=== PATIENT | female | born 1960 | race Caucasian/White ===

== ENCOUNTER 2020-05-23 09:53 | Outpatient (REF) | payer OTHER, SELFPAY ==
[2020-05-23 13:30] LABS: MANUAL DIFF FLAG NO
[2020-05-23 13:38] LABS: Basophils Absolute Auto 0.1 X10*3/uL (0.0-0.2); Eosinophils Absolute Auto 0.3 X10*3/uL (0.0-0.4); Eosinophils Percent Auto 3.3 % (0-4); Hematocrit 47.2 % (37-47); Hemoglobin 15.7 g/dl (12.0-16.0); Imm Gran Abs Auto 0.06 X10*3/uL (0.00-0.03); Imm Gran Pct Auto 0.6 % (0.0-0.4); Lymphocytes Absolute Auto 2.2 X10*3/uL (1.2-4.9); Lymphocytes Percent Auto 22.4 % (20-40); Mean Corpuscular HGB Conc 33.3 g/dl (31.0-35.0); Mean Corpuscular Hemoglobin 32.6 pg (27.0-33.0); Mean Corpuscular Volume 97.9 fL (80-98); Monocytes Absolute Auto 0.8 X10*3/uL (0.1-1.2); Monocytes Percent Auto 7.9 % (2-11); Neutrophils Absolute Auto 6.2 X10*3/uL (2.0-8.3); Neutrophils Percent Auto 64.8 % (45-73); Platelet Count 328 X10*3/uL (160-400); Red Blood Count 4.82 X10*6/uL (4.20-5.50); Red Cell Distribution Width 12.8 % (11.0-16.0); White Blood Count 9.6 X10*3/uL (4.8-10.8)
[2020-05-23 14:25] LABS: Alanine Aminotransferase 23 U/L (0-31); Albumin Level 4.6 g/dL (3.5-5.0); Alkaline Phosphatase 81 U/L (39-117); Anion Gap 14 (12-20); Aspartate Amino Transferase 23 U/L (5-31); Bilirubin Total 0.5 mg/dL (0.0-1.0); Blood Urea Nitrogen 6 mg/dL (9-16); Calcium 9.9 mg/dL (8.4-10.2); Carbon Dioxide 31 mmol/L (22-29); Chloride 98 mmol/L (96-108); Cholesterol 265 mg/dL; Estimated Glomerular Filt Rate > 60; Glucose Fasting 96 mg/dL (60-99); HDL Cholesterol 66 mg/dL; LDL Cholesterol Calculated 181 mg/dl; Potassium 5.2 mmol/l (3.3-5.1); Sodium 138 mmol/L (135-145); Total Protein 7.3 g/dL (6.5-8.0); Triglycerides 92 mg/dL
[2020-05-23 14:46] LABS: Vitamin D 25-OH Total 23.7 ng/mL (>30)
[2020-05-23 15:04] LABS: Folate > 20.0 ng/mL (> or = 4.0); Vitamin B12 656 pg/mL (200-900)
[2020-05-23 15:36] LABS: T4 Thyroxine 7.9 ug/dL (4.5-12.0)
== END 2020-05-23 09:54 | disposition home or self-care (01) ==
LOC: HO.10HDL 09:53
PROVIDERS: PCP Internal Medicine; Visit Provider Internal Medicine
DX: J44.9 Chronic obstructive pulmonary disease, unspecified (principal); F41.9 Anxiety disorder, unspecified; I10 Essential (primary) hypertension; E78.00 Pure hypercholesterolemia, unspecified
CPT/HCPCS: 36415; 80053; 80061; 82306; 82607; 82746; 84436; 84443; 85025

== ENCOUNTER 2020-10-03 11:56 | Outpatient (REF) | payer OTHER, SELFPAY ==
--- NOTE | ~2020-10-03 | MM_ITS ---
EXAMINATION: MM SCREENING DIGITAL BREAST TOMOSYNTHESIS, BILATERAL CLINICAL INFORMATION: Screening. Asymptomatic. The lifetime risk of breast cancer based on the Tyrer-Cuzick Model is 4%. COMPARISON: Mammography: 08/04/2018, 05/13/2017, 04/30/2016 TECHNIQUE: Digital breast tomosynthesis is performed in both the craniocaudal and mediolateral oblique views along with computer-aided detection (CAD). Synthesized 2D images are generated from the tomosynthesis. FINDINGS: There are scattered areas of fibroglandular density (ACR BI-RADS breast composition Category b). There are no significant masses, abnormal calcifications, or other abnormalities. Parenchymal pattern is similar to prior studies. No developing density. MM/MM tomosynthesis screening BI IMPRESSION: No mammographic evidence of malignancy. ASSESSMENT: BI-RADS 1: Negative RECOMMENDATION: Routine annual mammography screening. This patient's information was entered into a reminder system with a target due date for their next mammogram.
== END 2020-10-03 11:57 | disposition home or self-care (01) ==
LOC: HO.MAMMO 11:56
PROVIDERS: PCP Internal Medicine; Visit Provider Internal Medicine
DX: Z12.31 Encounter for screening mammogram for malignant neoplasm of breast (principal)
CPT/HCPCS: 77063; 77067

== ENCOUNTER 2020-12-03 10:54 | Outpatient (REF) | payer OTHER, SELFPAY ==
--- NOTE | ~2020-12-03 | XR_ITS ---
EXAMINATION: XR SINUSES CLINICAL INFORMATION: R09.81 - Nasal congestion COMPARISON: None TECHNIQUE: The sinuses are imaged in 4 views. FINDINGS: There is an unerupted posterior upper left molar residing in the left maxillary sinus. There is some trace mucosal thickening lateral aspect bilateral maxillary sinuses. No significant mucosal thickening and no air-fluid level or polypoid mass. There is no sinus thickening or sclerosis or destructive process. XR/XR sinus <3V IMPRESSION: 1. Unerupted tooth residing in the left maxillary sinus. 2. Mild mucosal thickening lateral aspect bilateral maxillary sinuses. No air-fluid levels.
== END 2020-12-03 10:55 | disposition home or self-care (01) ==
LOC: HO.XRAY 10:54
PROVIDERS: PCP Internal Medicine; Visit Provider Internal Medicine
DX: R09.81 Nasal congestion (principal)
CPT/HCPCS: 70210

== ENCOUNTER 2021-01-11 09:30 | Inpatient (IN) | payer OTHER, SELFPAY ==
[2021-01-11] VITALS (18 sets, daily range): BP systolic 139–186; BP diastolic 56–132; PULSE 90–103; RESP 16–26; TEMP 36.7–37.3; O2SAT 92–100; BMI 23.6
--- NOTE | 2021-01-11 | ECG_ITS ---
Test Reason : PRE SURG Blood Pressure : / mmHG Vent. Rate : 094 BPM Atrial Rate : 094 BPM P-R Int : 134 ms QRS Dur : 082 ms QT Int : 366 ms P-R-T Axes : 072 036 054 degrees QTc Int : 457 ms Sinus rhythm with occasional Premature ventricular complexes Possible Left atrial enlargement Borderline ECG When compared with ECG of 13-SEP-2019 10:14, No significant change was found Referred By: Becky Masterson Electronically Signed By:ROCK RICHMOND
--- NOTE | ~2021-01-11 | US_ITS ---
EXAMINATION: ULTRASOUND PELVIS TRANSABDOMINAL/TRANSVAGINAL COMPLETE CLINICAL INFORMATION: Right lower quadrant/right pelvic pain. COMPARISON: CT scan of the abdomen and pelvis dated 07/10/2019. TECHNIQUE: Multiple 2-D grayscale transabdominal/transvaginal pelvic ultrasound images with Doppler were obtained. FINDINGS: Uterus: Anteverted/anteflexed measuring 6.8 x 3.2 x 4.9 cm. No significant myometrial abnormality. Endometrial stripe measures up to 0.2 cm at the level the fundus without focal abnormality. An adjacent submucosal coarse calcification is seen along the posterior margin of the endometrium measuring 0.4 cm. Color Doppler showed no abnormal vascular flow. No free fluid in the cul-de-sac. Right ovary: Not visualized. No overt adnexal abnormality. Left ovary: 1.6 x 1.5 x 1.0 cm with a volume of 1.1 mL . Doppler showed no abnormal vascular flow. No left adnexal abnormality. US/US pelvic and transvaginal IMPRESSION: Benign findings without significant acute abnormality. The right ovary was not confidently identified, but no overt right adnexal abnormality was seen.
--- NOTE | ~2021-01-11 | CT_ITS ---
EXAMINATION: CT ABDOMEN AND PELVIS WITH CONTRAST CLINICAL INFORMATION: Right-sided abdomen pain. Leukocytosis COMPARISON: Portions of a previous CT 07/10/19 TECHNIQUE: Multidetector volumetric images were obtained from the superior aspect of the liver through the pubic symphysis following administration 85 mL of Omnipaque 350 intravenous contrast. Sagittal and coronal reformatted images were obtained on the technologist's workstation. Oral contrast: No This CT examination was performed using dose optimization techniques as appropriate, variously including the following: *Automated exposure control *Adjustment of mA and/or kV according to patient size (this includes techniques or standardized protocols for targeted exams where dose is matched to indication/reason for exam; i.e. extremities or head) *Use of iterative reconstruction technique DLP: 368 mGy-cm FINDINGS: Digital contact center engineer: Gas within large and small bowel throughout the abdomen and pelvis. No evidence of a large mass or collection. Arthritic changes around the hips. Arterial calcifications. Degenerative change in the spine. LUNG BASES: No suspicious abnormality in the visualized lower chest. LIVER, GALLBLADDER, AND BILIARY TREE: No suspicious focal liver lesion. I suspect some fatty change. There is a probable zone of fatty change adjacent to the interlobar fissure. There is no opaque gallstone. No biliary dilation PANCREAS: Within normal limits SPLEEN: Normal ADRENAL GLANDS: Minimal unchanged nodular thickening does not require any further evaluation KIDNEYS AND URETERS: No dilation of the urinary collecting system on either side. The nephrograms are symmetric. There are sharply circumscribed round varying sized fluid attenuating masses consistent with simple cysts. These do not require any further evaluation. Mild nonspecific perinephric stranding. BLADDER: No suspicious abnormality. GASTROINTESTINAL TRACT: There is stranding in the right lower quadrant. There is marked wall thickening of the appendix which is an ascending retrocecal position. There is fluid within the lumen. There is a small amount of fluid in the right lower quadrant and pelvic recesses. This represents an interval change. There is some associated thickening in the region of the cecum and terminal ileum. There is no evidence of pneumoperitoneum or high-grade small bowel obstruction. There are a few regional nonspecific mesenteric lymph nodes. ABDOMINAL WALL: No significant hernia is appreciated. LYMPH NODES: There are no measurably enlarged abdominal or pelvic lymph nodes. VASCULAR: There is extensive atherosclerosis with narrowing at the origin of the visceral branches of the aorta and in the arteries to both lower extremities. The portal vein enhances. PELVIC VISCERA: No suspicious abnormality the uterus or adnexa OSSEOUS STRUCTURES: There is degenerative change in the spine. CT/CT abdomen pelvis w con IMPRESSION: There is abnormal thickening of the dilated appendix with associated periappendiceal stranding and fluid. The pattern is most consistent with acute appendicitis. Perforation could be present. No drainable abscess or bowel obstruction. No pneumoperitoneum.
--- NOTE | 2021-01-11 12:36 | ED.GENADULT ---
HPI - General Adult General Chief complaint: Abdominal Pain <BARRINGTON Carey - Last Filed: 01/11/21 18:25> Stated complaint: pain on right side <BARRINGTON Carey - Last Filed: 01/11/21 18:25> Time Seen by Provider: 01/11/21 11:49 <BARRINGTON Carey - Last Filed: 01/11/21 18:25> Source: patient <Ric Oneil MD - Last Filed: 01/11/21 16:05> Mode of arrival: ambulatory <Ric Oneil MD - Last Filed: 01/11/21 16:05> Limitations: no limitations <Ric Oneil MD - Last Filed: 01/11/21 16:05> History of Present Illness HPI narrative: This is a very pleasant 60 years old of female presented to the ED with a chief complaint of right lower quadrant abdominal pain. She denies any systemic symptoms, denies any fever any vomiting or any diarrhea. She states that she feels well otherwise about the right lower quadrant abdominal pain. <Ric Oneil MD - Last Filed: 01/11/21 16:05> Onset (ago): day(s) (2) <Ric Oneil MD - Last Filed: 01/11/21 16:05> Location: abdomen and right (Lower quadrant) <Ric Oneil MD - Last Filed: 01/11/21 16:05> Radiation: non-radiation <Ric Oneil MD - Last Filed: 01/11/21 16:05> Severity: moderate <Ric Oneil MD - Last Filed: 01/11/21 16:05> Quality: burning <Ric Oneil MD - Last Filed: 01/11/21 16:05> Pain Consistency: constant <Ric Oneil MD - Last Filed: 01/11/21 16:05> Relieving factors: none <Ric Oneil MD - Last Filed: 01/11/21 16:05> Exacerbating factors: none <Ric Oneil MD - Last Filed: 01/11/21 16:05> Related Data Home medications: Previous Rx's Medication Instructions Recorded tiotropium bromide 18 mcg capsule 1 cap INHALATION DAILY #90 cap 10/30/20 with inhalation device clobetasol 0.05 % topical cream 1 appl TOPICAL BID 14 Days #60 g 11/04/20 lisinopril 20 mg tablet 20 mg PO DAILY #30 tab 11/11/20 albuterol sulfate 90 mcg/actuation 2 puff INHALATION Q4-6H PRN #8.5 g 11/18/20 aerosol inhaler lorazepam 0.5 mg tablet 0.5 mg PO DAILY #15 tab 12/09/20 fluticasone propionate 50 2 spray INTRANASAL DAILY #3 ea 12/29/20 mcg/actuation nasal spray,suspension ProAir HFA 90 mcg/actuation 2 puff PO Q4-6H PRN #8.5 g NS 12/30/20 aerosol inhaler azithromycin 250 mg tablet See Rx Instructions PO .COMPLEX #6 01/06/21 tab ezetimibe 10 mg tablet 10 mg PO DAILY #30 tab 01/06/21 fluticasone furoate 200 1 inh INHALATION DAILY #28 ea 01/06/21 mcg-vilanterol 25 mcg/dose inhalation powder <BARRINGTON Carey - Last Filed: 01/11/21 18:25> Allergies/adverse reactions: Allergies Allergy/AdvReac Type Severity Reaction Status Date / Time amoxicillin [Augmentin] Allergy Unknown Unknown Verified 01/11/21 12:34 atorvastatin Allergy Unknown Unknown Verified 01/11/21 12:34 cephalexin [From KEFLEX] Allergy Unknown STOMACH Verified 01/11/21 12:34 UPSET clavulanic acid [Augmentin] Allergy Unknown Under Verified 01/11/21 12:34 latex [LATEX] Allergy Unknown RASH Verified 01/11/21 12:34 Sulfa (Sulfonamide Allergy Unknown STOMACH Verified 01/11/21 12:34 Antibiotics) UPSET [SULFA (SULFONAMIDE ANTIBIOTICS)] fluticasone AdvReac Intermediate Anxiety Verified 01/11/21 12:34 [From Wixela Inhub] salmeterol AdvReac Intermediate Anxiety Verified 01/11/21 12:34 [From Wixela Inhub] <BARRINGTON Carey - Last Filed: 01/11/21 18:25> Review of Systems Review of Systems: Yes all other systems are reviewed and are negative <Ric Oneil MD - Last Filed: 01/11/21 16:05> Cardiovascular: Cardiovascular: Reports no additional cardiovascular complaints <Ric Oneil MD - Last Filed: 01/11/21 16:05> Respiratory: Respiratory: Reports no additional respiratory complaints, Denies chest congestion, Denies cough and Denies hemoptysis <Ric Oneil MD - Last Filed: 01/11/21 16:05> Gastrointestinal: Gastrointestinal: Reports abdominal pain, Denies hematochezia, Denies diarrhea and Denies vomiting <Ric Oneil MD - Last Filed: 01/11/21 16:05> Neurologic: Reports system reviewed and no additional complaints, except as documented <Ric Oneil MD - Last Filed: 01/11/21 16:05> PMFSH Past Medical History Medical History: Medical History Anxiety Colonoscopy refused COPD (chronic obstructive pulmonary disease) Hypercholesterolemia Hypertension Lymphedema Recurrent urinary tract infection <BARRINGTON Carey - Last Filed: 01/11/21 18:25> Surgical History: Surgical History (Updated 01/11/21 @ 17:37 by Becky Masterson MD) History of section History of tubal ligation Hx of tonsillectomy <BARRINGTON Carey - Last Filed: 01/11/21 18:25> Social History Social History: Social History Alcohol intake: current Alcohol intake frequency: holidays/special occasions only Smoking Status: Former smoker Advance Directives: Yes Advance Directives Information Provided: Yes Advance Directives on File: No Patient : No <BARRINGTON Carey - Last Filed: 01/11/21 18:25> Physical Exam Vital Signs: Vital Signs: Last Vital Signs Temp 99.1 F 01/11/21 12:34 Pulse 94 01/11/21 15:21 Resp 18 01/11/21 15:21 BP 162/72 H 01/11/21 15:21 Pulse Ox 95 01/11/21 15:21 Body Mass Index 23.6 <BARRINGTON Carey - Last Filed: 01/11/21 18:25> Vital Signs: Last Vital Signs Temp 99.1 F 01/11/21 12:34 Pulse 94 01/11/21 15:21 Resp 18 01/11/21 15:21 BP 162/72 H 01/11/21 15:21 Pulse Ox 95 01/11/21 15:21 Body Mass Index 23.6 <Ric Oneil MD - Last Filed: 01/11/21 16:05> Const: Other: Patient looks well in not acute distress <Ric Oneil MD - Last Filed: 01/11/21 16:05> Orientation/consciousness: oriented to person, oriented to place, oriented to time and patient oriented x3 <Ric Oneil MD - Last Filed: 01/11/21 16:05> HENMT: Head: Yes normal to inspection <Ric Oneil MD - Last Filed: 01/11/21 16:05> Eyes: General: appearance normal, both eyes and all related structures <Ric Oneil MD - Last Filed: 01/11/21 16:05> Neck: Neck: Yes normal visual inspection, Yes full ROM and Yes no lymphadenopathy <Ric Oneil MD - Last Filed: 01/11/21 16:05> Chest: Chest palpation & inspection: normal inspection of the chest <Ric Oneil MD - Last Filed: 01/11/21 16:05> Resp: Effort & Inspection: normal respiratory effort <Ric Oneil MD - Last Filed: 01/11/21 16:05> Auscultation: clear to auscultation bilaterally <Ric Oneil MD - Last Filed: 01/11/21 16:05> Cardio: Jugular venous distension: no JVD <Ric Oneil MD - Last Filed: 01/11/21 16:05> Palpation: normal PMI <Ric Oneil MD - Last Filed: 01/11/21 16:05> Rate: regular rate <Ric Oneil MD - Last Filed: 01/11/21 16:05> Rhythm: regular rhythm <Ric Oneil MD - Last Filed: 01/11/21 16:05> GI: Inspection: Yes normal to inspection <Ric Oneil MD - Last Filed: 01/11/21 16:05> Palpation (GI): Soft to palpation and Tenderness to palpation present (GI) in the RLQ <Ric Oneil MD - Last Filed: 01/11/21 16:05> Skin: General skin exam: no rashes or lesions noted <Ric Oneil MD - Last Filed: 01/11/21 16:05> Neuro: General: oriented to person, oriented to place, oriented to time and patient oriented x3 <Ric Oneil MD - Last Filed: 01/11/21 16:05> Extrem: General: Yes normal to inspection, Yes full ROM, Yes capillary refill normal and Yes normal exam except as noted <Ric Oneil MD - Last Filed: 01/11/21 16:05> Course Course Course Narrative: Rapid Medical Examination: 60 y/o female with history of COPD, anxiety, HTN, HLD, hx recurrent UTI, hx ovarian cyst presenting with right sided pelvic pain and RLQ pain for the last 2 days. Worse with movement and palpation. No N/V/D, urinary symptoms. Will get basic lab workup, UA and pelvic U/S to start. May need CT to r/o appendicitis. Vitally stable and non-toxic. Plan per provider in the Main ED. <BARRINGTON Carey - Last Filed: 01/11/21 18:25> Medical Decision Making Lab Data Result diagrams: : 01/11/21 13:03 01/11/21 13:03 <BARRINGTON Carey - Last Filed: 01/11/21 18:25> Labs: Lab Results 01/11/21 01/11/21 01/11/21 Range/Units 13:03 13:03 13:03 WBC 18.9 H (4.8-10.8) X10*3/uL RBC 4.59 (4.20-5.50) X10*6/uL Hgb 14.6 (12.0-16.0) g/dl Hct 44.2 (37-47) % MCV 96.3 (80-98) fL MCH 31.8 (27.0-33.0) pg MCHC 33.0 (31.0-35.0) g/dl RDW 12.7 (11.0-16.0) % Plt Count 238 D (160-400) X10*3/uL MPV 9.4 (9.4-12.3) fL Immature Gran % (Auto) 0.5 H (0.0-0.4) % Neut % (Auto) 80.0 H (45-73) % Lymph % (Auto) 11.3 L (20-40) % [place] % (Auto) 7.5 (2-11) % Eos % (Auto) 0.4 (0-4) % Baso % (Auto) 0.3 (0-2) % Lymph # (Auto) 2.1 (1.2-4.9) X10*3/uL [place] # (Auto) 1.4 H (0.1-1.2) X10*3/uL Eos # (Auto) 0.1 (0.0-0.4) X10*3/uL Baso # (Auto) 0.1 (0.0-0.2) X10*3/uL Abs Immat Gran (auto) 0.10 H (0.00-0.03) X10*3/uL Absolute Neuts (auto) 15.1 H (2.0-8.3) X10*3/uL Absolute Nucleated RBC 0.000 (0.0-0.012) X10*3/uL Nucleated RBC % (auto) 0.0 (0.0-0.2) /100WBC Sodium 137 (135-145) mmol/L Potassium 4.3 (3.3-5.1) mmol/L Chloride 97 (96-108) mmol/L Carbon Dioxide 31 H (22-29) mmol/L Anion Gap 13 (12-20) BUN 6 L (9-16) mg/dL Creatinine 0.57 (0.5-1.4) mg/dL Estim Creat Clear Calc 78.2 Estimated GFR > 60 Random Glucose 101 (60-115) mg/dL Lactic Acid (0.5-2.0) mmol/L Calcium 10.2 (8.4-10.2) mg/dL Magnesium 1.8 (1.6-2.6) mg/dL Total Bilirubin 0.9 (0.0-1.0) mg/dL Direct Bilirubin 0.3 (0.0-0.5) mg/dL AST 12 D (5-31) U/L ALT 15 (0-31) U/L Alkaline Phosphatase 84 (39-117) U/L Total Protein 7.1 (6.5-8.0) g/dL Albumin 4.3 (3.5-5.0) g/dL Urine Color YELLOW Urine Appearance CLEAR Urine pH 6.5 (5.0-8.0) Ur Specific [place] <= 1.005 (1.005-1.025) Urine Protein NEG (NEG-TRACE) MG/DL Urine Glucose (UA) NEG (NEG) MG/DL Urine Ketones NEG (NEG) MG/DL Urine Blood TRACE (NEG) Urine Nitrite NEG (NEG) Ur Leukocyte Esterase NEG (NEG) Urine RBC 0-2 (0) /HPF Urine WBC 0 (0-4) /HPF Ur Squamous Epith Cells TRACE /LPF Urine Bacteria TRACE /LPF 01/11/21 Range/Units 14:36 WBC (4.8-10.8) X10*3/uL RBC (4.20-5.50) X10*6/uL Hgb (12.0-16.0) g/dl Hct (37-47) % MCV (80-98) fL MCH (27.0-33.0) pg MCHC (31.0-35.0) g/dl RDW (11.0-16.0) % Plt Count (160-400) X10*3/uL MPV (9.4-12.3) fL Immature Gran % (Auto) (0.0-0.4) % Neut % (Auto) (45-73) % Lymph % (Auto) (20-40) % [place] % (Auto) (2-11) % Eos % (Auto) (0-4) % Baso % (Auto) (0-2) % Lymph # (Auto) (1.2-4.9) X10*3/uL [place] # (Auto) (0.1-1.2) X10*3/uL Eos # (Auto) (0.0-0.4) X10*3/uL Baso # (Auto) (0.0-0.2) X10*3/uL Abs Immat Gran (auto) (0.00-0.03) X10*3/uL Absolute Neuts (auto) (2.0-8.3) X10*3/uL Absolute Nucleated RBC (0.0-0.012) X10*3/uL Nucleated RBC % (auto) (0.0-0.2) /100WBC Sodium (135-145) mmol/L Potassium (3.3-5.1) mmol/L Chloride (96-108) mmol/L Carbon Dioxide (22-29) mmol/L Anion Gap (12-20) BUN (9-16) mg/dL Creatinine (0.5-1.4) mg/dL Estim Creat Clear Calc Estimated GFR Random Glucose (60-115) mg/dL Lactic Acid 1.0 (0.5-2.0) mmol/L Calcium (8.4-10.2) mg/dL Magnesium (1.6-2.6) mg/dL Total Bilirubin (0.0-1.0) mg/dL Direct Bilirubin (0.0-0.5) mg/dL AST (5-31) U/L ALT (0-31) U/L Alkaline Phosphatase (39-117) U/L Total Protein (6.5-8.0) g/dL Albumin (3.5-5.0) g/dL Urine Color Urine Appearance Urine pH (5.0-8.0) Ur Specific [place] (1.005-1.025) Urine Protein (NEG-TRACE) MG/DL Urine Glucose (UA) (NEG) MG/DL Urine Ketones (NEG) MG/DL Urine Blood (NEG) Urine Nitrite (NEG) Ur Leukocyte Esterase (NEG) Urine RBC (0) /HPF Urine WBC (0-4) /HPF Ur Squamous Epith Cells /LPF Urine Bacteria /LPF <BARRINGTON Carey - Last Filed: 01/11/21 18:25> Lab Results 01/11/21 01/11/21 01/11/21 Range/Units 13:03 13:03 13:03 WBC 18.9 H (4.8-10.8) X10*3/uL RBC 4.59 (4.20-5.50) X10*6/uL Hgb 14.6 (12.0-16.0) g/dl Hct 44.2 (37-47) % MCV 96.3 (80-98) fL MCH 31.8 (27.0-33.0) pg MCHC 33.0 (31.0-35.0) g/dl RDW 12.7 (11.0-16.0) % Plt Count 238 D (160-400) X10*3/uL MPV 9.4 (9.4-12.3) fL Immature Gran % (Auto) 0.5 H (0.0-0.4) % Neut % (Auto) 80.0 H (45-73) % Lymph % (Auto) 11.3 L (20-40) % [place] % (Auto) 7.5 (2-11) % Eos % (Auto) 0.4 (0-4) % Baso % (Auto) 0.3 (0-2) % Lymph # (Auto) 2.1 (1.2-4.9) X10*3/uL [place] # (Auto) 1.4 H (0.1-1.2) X10*3/uL Eos # (Auto) 0.1 (0.0-0.4) X10*3/uL Baso # (Auto) 0.1 (0.0-0.2) X10*3/uL Abs Immat Gran (auto) 0.10 H (0.00-0.03) X10*3/uL Absolute Neuts (auto) 15.1 H (2.0-8.3) X10*3/uL Absolute Nucleated RBC 0.000 (0.0-0.012) X10*3/uL Nucleated RBC % (auto) 0.0 (0.0-0.2) /100WBC Sodium 137 (135-145) mmol/L Potassium 4.3 (3.3-5.1) mmol/L Chloride 97 (96-108) mmol/L Carbon Dioxide 31 H (22-29) mmol/L Anion Gap 13 (12-20) BUN 6 L (9-16) mg/dL Creatinine 0.57 (0.5-1.4) mg/dL Estim Creat Clear Calc 78.2 Estimated GFR > 60 Random Glucose 101 (60-115) mg/dL Lactic Acid (0.5-2.0) mmol/L Calcium 10.2 (8.4-10.2) mg/dL Magnesium 1.8 (1.6-2.6) mg/dL Total Bilirubin 0.9 (0.0-1.0) mg/dL Direct Bilirubin 0.3 (0.0-0.5) mg/dL AST 12 D (5-31) U/L ALT 15 (0-31) U/L Alkaline Phosphatase 84 (39-117) U/L Total Protein 7.1 (6.5-8.0) g/dL Albumin 4.3 (3.5-5.0) g/dL Urine Color YELLOW Urine Appearance CLEAR Urine pH 6.5 (5.0-8.0) Ur Specific [place] <= 1.005 (1.005-1.025) Urine Protein NEG (NEG-TRACE) MG/DL Urine Glucose (UA) NEG (NEG) MG/DL Urine Ketones NEG (NEG) MG/DL Urine Blood TRACE (NEG) Urine Nitrite NEG (NEG) Ur Leukocyte Esterase NEG (NEG) Urine RBC 0-2 (0) /HPF Urine WBC 0 (0-4) /HPF Ur Squamous Epith Cells TRACE /LPF Urine Bacteria TRACE /LPF 01/11/21 Range/Units 14:36 WBC (4.8-10.8) X10*3/uL RBC (4.20-5.50) X10*6/uL Hgb (12.0-16.0) g/dl Hct (37-47) % MCV (80-98) fL MCH (27.0-33.0) pg MCHC (31.0-35.0) g/dl RDW (11.0-16.0) % Plt Count (160-400) X10*3/uL MPV (9.4-12.3) fL Immature Gran % (Auto) (0.0-0.4) % Neut % (Auto) (45-73) % Lymph % (Auto) (20-40) % [place] % (Auto) (2-11) % Eos % (Auto) (0-4) % Baso % (Auto) (0-2) % Lymph # (Auto) (1.2-4.9) X10*3/uL [place] # (Auto) (0.1-1.2) X10*3/uL Eos # (Auto) (0.0-0.4) X10*3/uL Baso # (Auto) (0.0-0.2) X10*3/uL Abs Immat Gran (auto) (0.00-0.03) X10*3/uL Absolute Neuts (auto) (2.0-8.3) X10*3/uL Absolute Nucleated RBC (0.0-0.012) X10*3/uL Nucleated RBC % (auto) (0.0-0.2) /100WBC Sodium (135-145) mmol/L Potassium (3.3-5.1) mmol/L Chloride (96-108) mmol/L Carbon Dioxide (22-29) mmol/L Anion Gap (12-20) BUN (9-16) mg/dL Creatinine (0.5-1.4) mg/dL Estim Creat Clear Calc Estimated GFR Random Glucose (60-115) mg/dL Lactic Acid 1.0 (0.5-2.0) mmol/L Calcium (8.4-10.2) mg/dL Magnesium (1.6-2.6) mg/dL Total Bilirubin (0.0-1.0) mg/dL Direct Bilirubin (0.0-0.5) mg/dL AST (5-31) U/L ALT (0-31) U/L Alkaline Phosphatase (39-117) U/L Total Protein (6.5-8.0) g/dL Albumin (3.5-5.0) g/dL Urine Color Urine Appearance Urine pH (5.0-8.0) Ur Specific [place] (1.005-1.025) Urine Protein (NEG-TRACE) MG/DL Urine Glucose (UA) (NEG) MG/DL Urine Ketones (NEG) MG/DL Urine Blood (NEG) Urine Nitrite (NEG) Ur Leukocyte Esterase (NEG) Urine RBC (0) /HPF Urine WBC (0-4) /HPF Ur Squamous Epith Cells /LPF Urine Bacteria /LPF <Ric Oneil MD - Last Filed: 01/11/21 16:05> Discharge Plan Discharge Clinical Impression: Appendicitis <BARRINGTON Carey - Last Filed: 01/11/21 18:25> Patient Disposition: Admitted As Inpatient <BARRINGTON Carey - Last Filed: 01/11/21 18:25>
[2021-01-11 13:09] LABS: Basophils Absolute Auto 0.1 X10*3/uL (0.0-0.2); Basophils Percent Auto 0.3 % (0-2); Eosinophils Absolute Auto 0.1 X10*3/uL (0.0-0.4); Eosinophils Percent Auto 0.4 % (0-4); Hematocrit 44.2 % (37-47); Hemoglobin 14.6 g/dl (12.0-16.0); Imm Gran Pct Auto 0.5 % (0.0-0.4); Lymphocytes Absolute Auto 2.1 X10*3/uL (1.2-4.9); Lymphocytes Percent Auto 11.3 % (20-40); MANUAL DIFF FLAG NO; Mean Corpuscular Hemoglobin 31.8 pg (27.0-33.0); Mean Corpuscular Volume 96.3 fL (80-98); Mean Platelet Volume 9.4 fL (9.4-12.3); Monocytes Absolute Auto 1.4 X10*3/uL (0.1-1.2); Monocytes Percent Auto 7.5 % (2-11); Neutrophils Absolute Auto 15.1 X10*3/uL (2.0-8.3); Platelet Count 238 X10*3/uL (160-400); Red Blood Count 4.59 X10*6/uL (4.20-5.50); Red Cell Distribution Width 12.7 % (11.0-16.0); White Blood Count 18.9 X10*3/uL (4.8-10.8)
[2021-01-11 13:12] LABS: Glucose Urine UA NEG (NEG); Leukocyte Esterase Urine NEG (NEG); Nitrite Urine NEG (NEG); PH 6.5 (5.0-8.0); Specific Gravity - Urine <= 1.005 (1.005-1.025); Urine Blood TRACE (NEG); Urine Ketones NEG (NEG); Urine Protein NEG (NEG-TRACE)
[2021-01-11 13:13] LABS: Appearance Urine CLEAR; Color Urine YELLOW
[2021-01-11 13:32] LABS: Bacteria Urine TRACE /LPF; RBC Urine 0-2 /HPF (0); Squamous Epithelial Cell Urine TRACE /LPF; WBC Urine 0 /HPF (0-4)
[2021-01-11 13:35] LABS: Alanine Aminotransferase 15 U/L (0-31); Albumin Level 4.3 g/dL (3.5-5.0); Alkaline Phosphatase 84 U/L (39-117); Anion Gap 13 (12-20); Aspartate Amino Transferase 12 U/L (5-31); Bilirubin Direct 0.3 mg/dL (0.0-0.5); Bilirubin Total 0.9 mg/dL (0.0-1.0); Blood Urea Nitrogen 6 mg/dL (9-16); Calcium 10.2 mg/dL (8.4-10.2); Carbon Dioxide 31 mmol/L (22-29); Chloride 97 mmol/L (96-108); Creatinine Clr Calc Pharmacy 78.2; Estimated Glomerular Filt Rate > 60; Glucose Random 101 mg/dL (60-115); Magnesium 1.8 mg/dL (1.6-2.6); Potassium 4.3 mmol/L (3.3-5.1); Sodium 137 mmol/L (135-145); Total Protein 7.1 g/dL (6.5-8.0)
[2021-01-11] MEDS: iohexoL 350 MG/ML 100 ML INFUS..BTL IV (15:16)
[2021-01-11] MEDS: 0.9 % Sodium Chloride 1,000 ML 999 ML IVCONT (15:20)
[2021-01-11] MEDS: LORazepam 1 MG TABLET PO (15:33)
--- NOTE | 2021-01-11 15:33 | PC.NURSE ---
Pt anxious. MD aware and po ativan given. VSS at this time. Awaiting CT results
[2021-01-11] MEDS: levoFLOXacin/D5W 500 MG/100 ML PIGGYBACK 100 MG IV (16:43)
--- NOTE | 2021-01-11 17:32 | PM.HPGS ---
History of Present Illness History of Present Illness Date of Service: 01/11/21 Chief complaint: pain on right side Narrative: Ginna Mirza is a 60 year old female who presented to the emergency department for today for evaluation of right-sided abdominal pain that had been present and worsening over the past 2 days. She has a history of COPD and hypertension. Since the onset of pain, her appetite has been fine. Her bowels have been moving normally. She has not experienced nausea, vomiting, fever or chills. She has no urinary complaints. In the emergency department, white blood count was noted to be elevated at 18.9. CT scan of the abdomen and pelvis was obtained and was consistent with acute appendicitis. Review of Systems Constitutional: Constitutional: Denies chills, Denies fever(s) and Denies headache(s) ENT: Denies dizziness, Denies headache(s) and Reports sinus pressure Cardiovascular: Cardiovascular: Denies chest pain, Denies rapid heart rate and Reports dyspnea on exertion Respiratory: Respiratory: Reports cough, Reports dyspnea on exertion and Reports wheezing Gastrointestinal: Gastrointestinal: Reports as per HPI Genitourinary: Genitourinary: Reports no additional female genitourinary complaints Musculoskeletal: Musculoskeletal: Reports no additional musculoskeletal complaints Integumentary/Breasts: Skin/Breast: Reports rash (Chronic) Neurologic: Denies dizziness and Denies headache(s) Hematologic/Lymphatic: Hematologic/Lymphatic: Reports no additional hematologic/lymphatic complaints Allergic/Immunologic: Allergic/Immunologic: Reports wheezing PMFSH Past Medical History Medical History Anxiety Colonoscopy refused COPD (chronic obstructive pulmonary disease) Hypercholesterolemia Hypertension Lymphedema Recurrent urinary tract infection Surgical History Surgical History (Updated 01/11/21 @ 17:37 by Becky Masterson MD) History of section History of tubal ligation Hx of tonsillectomy Social History Social History Alcohol intake: current Alcohol intake frequency: holidays/special occasions only Smoking Status: Former smoker Advance Directives: Yes Advance Directives Information Provided: Yes Advance Directives on File: No Patient : No Meds Allergies Allergy/AdvReac Type Severity Reaction Status Date / Time amoxicillin [Augmentin] Allergy Unknown Unknown Verified 01/11/21 12:34 atorvastatin Allergy Unknown Unknown Verified 01/11/21 12:34 cephalexin [From KEFLEX] Allergy Unknown STOMACH Verified 01/11/21 12:34 UPSET clavulanic acid [Augmentin] Allergy Unknown Under Verified 01/11/21 12:34 latex [LATEX] Allergy Unknown RASH Verified 01/11/21 12:34 Sulfa (Sulfonamide Allergy Unknown STOMACH Verified 01/11/21 12:34 Antibiotics) UPSET [SULFA (SULFONAMIDE ANTIBIOTICS)] fluticasone AdvReac Intermediate Anxiety Verified 01/11/21 12:34 [From Wixela Inhub] salmeterol AdvReac Intermediate Anxiety Verified 01/11/21 12:34 [From Wixela Inhub] Active Medications: Current Medications Generic Name Dose Route Start Last Admin Trade Name Freq PRN Reason Stop Dose Admin Albuterol/Ipratropium 1.5 ml 01/11/21 17:30 Albuterol/Iprat 2.5/0.5mg 3 Ml Ampul.Neb INHALE 01/11/21 17:31 ONCE STA Physical Exam Vital Signs: Vital Signs: Last Vital Signs Temp 99.1 F 01/11/21 12:34 Pulse 94 01/11/21 15:21 Resp 18 01/11/21 15:21 BP 162/72 H 01/11/21 15:21 Pulse Ox 95 01/11/21 15:21 Body Mass Index 23.6 Const: General: cooperative, no acute distress and alert HENMT: Head: Yes normocephalic and Yes atraumatic Eyes: General: appearance normal, both eyes and all related structures Neck: Neck: Yes trachea midline and Yes supple Resp: Effort & Inspection: normal respiratory effort Auscultation: wheezes (Bilateral, left greater than right) Cardio: Rate: regular rate Rhythm: regular rhythm GI: Other: Soft, flat, no palpable masses, active bowel sounds, tender right abdomen most significant right lower quadrant with mild rebound Rectal Exam - Female: deferred Skin: Other: Normal color, warm and dry Extrem: Other: Dorsalis pedis pulses normal bilaterally General: Yes normal to inspection Psych: Thought process: Normal thought process present Insight: Good insight present (Psych) Results Results Labs: Short CBC 01/11/21 Range/Units 13:03 WBC 18.9 H (4.8-10.8) X10*3/uL Hgb 14.6 (12.0-16.0) g/dl Hct 44.2 (37-47) % Plt Count 238 D (160-400) X10*3/uL BMP 01/11/21 13:03 Sodium 137 Potassium 4.3 Chloride 97 Carbon Dioxide 31 H BUN 6 L Creatinine 0.57 Calcium 10.2 Liver Function 01/11/21 Range/Units 13:03 Total Bilirubin 0.9 (0.0-1.0) mg/dL Direct Bilirubin 0.3 (0.0-0.5) mg/dL AST 12 D (5-31) U/L ALT 15 (0-31) U/L Alkaline Phosphatase 84 (39-117) U/L Albumin 4.3 (3.5-5.0) g/dL Urine 01/11/21 Range/Units 13:03 Urine Color YELLOW Urine Appearance CLEAR Urine pH 6.5 (5.0-8.0) Ur Specific [place] <= 1.005 (1.005-1.025) Urine Protein NEG (NEG-TRACE) MG/DL Urine Glucose (UA) NEG (NEG) MG/DL Assessment and Plan (1) Appendicitis: Status: Acute (2) COPD (chronic obstructive pulmonary disease): Qualifiers: COPD type: emphysema Emphysema type: panlobular Qualified Code(s): J43.1 - Panlobular emphysema Status: Acute (3) Hypercholesterolemia: Status: Acute (4) Hypertension: Qualifiers: Hypertension type: essential hypertension Qualified Code(s): I10 - Essential (primary) hypertension Status: Acute (5) Anxiety: Status: Acute 60-year-old female presenting with right-sided abdominal pain and examination and CT scan consistent with acute appendicitis. We have discussed options for treatment including laparoscopic appendectomy with potential need to convert to open, open appendectomy and antibiotic therapy. She has elected to proceed with a laparoscopic appendectomy. We reviewed the technique and risks including but not limited to infection, bleeding, DVT and PE, pulmonary complications, error in diagnosis, bowel leak and incisional hernia. She is aware that open surgery may be required. Surgery will be performed tonight. We will continue her usual medications. Albuterol updraft has been ordered preoperatively. Depending upon postoperative course, consultation with hospitalist Service for assistance with management may be needed. Procedures Date of Service Date of Service: 01/11/21
--- NOTE | 2021-01-11 18:10 | PC.NURSE ---
Report given to Jackelin FARM REPORTER
[2021-01-11 18:57] LABS: COVID-19 Test Negative (Negative)
--- NOTE | 2021-01-11 19:15 | HO.ANESPROP2 ---
[facility] Active Problems Active Problems: All Active Problems (Updated 01/11/21 @ 15:52 by Ric Oneil MD) Appendicitis (Acute) Nasal congestion (Acute) Lymphedema (Acute) Urticaria (Acute) Recurrent urinary tract infection (Acute) Anxiety (Acute) COPD (chronic obstructive pulmonary disease) (Acute) Hypercholesterolemia (Acute) Hypertension (Acute) Past Medical History Medical History Anxiety Colonoscopy refused COPD (chronic obstructive pulmonary disease) Hypercholesterolemia Hypertension Lymphedema Recurrent urinary tract infection Surgical History Surgical History History of section History of tubal ligation Hx of tonsillectomy Social History Social History Alcohol intake: current Alcohol intake frequency: holidays/special occasions only Smoking Status: Former smoker Advance Directives: Yes Advance Directives Information Provided: Yes Advance Directives on File: No Patient : No Meds Allergies Allergy/AdvReac Type Severity Reaction Status Date / Time amoxicillin [Augmentin] Allergy Unknown Unknown Verified 01/11/21 12:34 atorvastatin Allergy Unknown Unknown Verified 01/11/21 12:34 cephalexin [From KEFLEX] Allergy Unknown STOMACH Verified 01/11/21 12:34 UPSET clavulanic acid [Augmentin] Allergy Unknown Under Verified 01/11/21 12:34 latex [LATEX] Allergy Unknown RASH Verified 01/11/21 12:34 Sulfa (Sulfonamide Allergy Unknown STOMACH Verified 01/11/21 12:34 Antibiotics) UPSET [SULFA (SULFONAMIDE ANTIBIOTICS)] fluticasone AdvReac Intermediate Anxiety Verified 01/11/21 12:34 [From Wixela Inhub] salmeterol AdvReac Intermediate Anxiety Verified 01/11/21 12:34 [From Wixela Inhub] Exam Exam Date and Time: January 11, 2021 191 Height,Weight and Vital Signs: Height 5 ft 1 in Weight 56.699 kg Last Vital Signs Temp 99.1 F 01/11/21 12:34 Pulse 94 01/11/21 15:21 Resp 18 01/11/21 15:21 BP 162/72 H 01/11/21 15:21 Pulse Ox 95 01/11/21 15:21 Pertinent Lab Results Pertinent Lab Results: Laboratory Tests 01/11/21 01/11/21 01/11/21 13:03 13:03 13:03 WBC 18.9 H RBC 4.59 Hgb 14.6 Hct 44.2 MCV 96.3 MCH 31.8 MCHC 33.0 RDW 12.7 Plt Count 238 D MPV 9.4 Immature Gran % (Auto) 0.5 H Neut % (Auto) 80.0 H Lymph % (Auto) 11.3 L [place] % (Auto) 7.5 Eos % (Auto) 0.4 Baso % (Auto) 0.3 Lymph # (Auto) 2.1 [place] # (Auto) 1.4 H Eos # (Auto) 0.1 Baso # (Auto) 0.1 Abs Immat Gran (auto) 0.10 H Absolute Neuts (auto) 15.1 H Absolute Nucleated RBC 0.000 Nucleated RBC % (auto) 0.0 Sodium 137 Potassium 4.3 Chloride 97 Carbon Dioxide 31 H Anion Gap 13 BUN 6 L Creatinine 0.57 Estim Creat Clear Calc 78.2 Estimated GFR > 60 Random Glucose 101 Lactic Acid Calcium 10.2 Magnesium 1.8 Total Bilirubin 0.9 Direct Bilirubin 0.3 AST 12 D ALT 15 Alkaline Phosphatase 84 Total Protein 7.1 Albumin 4.3 Urine Color YELLOW Urine Appearance CLEAR Urine pH 6.5 Ur Specific [place] <= 1.005 Urine Protein NEG Urine Glucose (UA) NEG Urine Ketones NEG Urine Blood TRACE Urine Nitrite NEG Ur Leukocyte Esterase NEG Urine RBC 0-2 Urine WBC 0 Ur Squamous Epith Cells TRACE Urine Bacteria TRACE COVID-19 (MAXIMINO) COVID-19 Clin Com 01/11/21 01/11/21 14:36 18:37 WBC RBC Hgb Hct MCV MCH MCHC RDW Plt Count MPV Immature Gran % (Auto) Neut % (Auto) Lymph % (Auto) [place] % (Auto) Eos % (Auto) Baso % (Auto) Lymph # (Auto) [place] # (Auto) Eos # (Auto) Baso # (Auto) Abs Immat Gran (auto) Absolute Neuts (auto) Absolute Nucleated RBC Nucleated RBC % (auto) Sodium Potassium Chloride Carbon Dioxide Anion Gap BUN Creatinine Estim Creat Clear Calc Estimated GFR Random Glucose Lactic Acid 1.0 Calcium Magnesium Total Bilirubin Direct Bilirubin AST ALT Alkaline Phosphatase Total Protein Albumin Urine Color Urine Appearance Urine pH Ur Specific [place] Urine Protein Urine Glucose (UA) Urine Ketones Urine Blood Urine Nitrite Ur Leukocyte Esterase Urine RBC Urine WBC Ur Squamous Epith Cells Urine Bacteria COVID-19 (MAXIMINO) Negative COVID-19 Clin Com See Note Airway Mallampati Class: II TM Dist: >3cm Neck ROM: Full
--- NOTE | 2021-01-11 20:52 | P.BOP_ITS ---
Brief Operative Note Date of Service: 01/11/21 Pre-op diagnosis: acute appendicitis Post-op diagnosis: same Procedure: laparoscopic appendectomy Surgeon: Becky Masterson MD Anesthesia: GETA Was an Community Affairs Manager used for this Procedure?: No Estimated blood loss (mL): 15 IV fluids (mL): 1,000 Pathology: other (appendix) Condition: stable Disposition: PACU
--- NOTE | 2021-01-11 21:17 | P.OP_ITS ---
Operative Note Operative Note Date of Service: 01/11/21 Narrative: Pre-op diagnosis: acute appendicitis Post-op diagnosis: same Procedure: laparoscopic appendectomy Surgeon: Becky Masterson MD Anesthesia: GETA Was an Record Center Coordinator used for this Procedure?: No Estimated blood loss (mL): 15 IV fluids (mL): 1,000 Pathology: other (appendix) Condition: stable Disposition: PACU This is a 60-year-old female who presented to the emergency room for evaluation of right-sided abdominal pain of 2 days duration. Workup revealed an elevated white blood count and a CT scan was consistent with acute appendicitis. Procedure in detail: With the patient in the supine position following the induction of adequate general anesthesia, time-out procedure was performed. She had received Levaquin and Flagyl in the emergency department. She was allergic to penicillin. Additional antibiotics were not administered. The abdomen was prepped with ChloraPrep and was draped sterilely. Each trocar site was infiltrated with local anesthetic prior to making incisions. A supraumbilical incision was made and was carried down to the level of the fascia. The fascia was elevated in the midline with Martell clamp and holding sutures of 0 Polysorb were placed on either side. The Martell was released and the fascia was split in the midline. The peritoneal cavity was entered and the Gloria trocar was inserted. The peritoneal cavity was insufflated to a pressure 15 mm of mercury and the 30 degree 5 mm laparoscopic was inserted. The peritoneal cavity was visualized. There were some adhesions between omentum and abdominal wall medially in the right lower quadrant. There were numerous adhesions to the lower midline and left abdominal wall including adhesions between omentum, bowel loops and abdominal wall.. It extensive adhesiolysis would have been required to clear adequate space for insertion of a trocar in the left lower quadrant. Decision was made to place a 5 mm trocar in the right upper quadrant. This was done. A 2nd 5 mm trocar was placed to the right of the midline in the suprapubic area. Laparoscopic was placed through the right upper quadrant port and blunt graspers were employed to gently yet manipulate the cecum. The base of the cecum was identified and the appendix was then identified running cephalad in the right paracolic gutter. It was adherent to the lateral aspect of the right colon. It was gently dissected free bluntly and then was grasped distally using an atraumatic grasper inserted through the right lower quadrant port. The 5 mm laparoscopic LigaSure was inserted through the Gloria trocar and the mesoappendix was divided using the LigaSure or moving from distal to proximal. Once the base of the appendix had been dissected free, the LigaSure was removed and the Endo JAXON 30 purple load was inserted. The jaws were angled and opened and placed across the base of the appendix. The device was then closed and was inspected to ensure that no extraneous tissues were included. The stapler was then fired, opened and removed. The staple line on t he cecum was inspected and was found to be intact with no evidence of bleeding. The specimen pouch was inserted through the Gloria trocar and the appendix was placed into the pouch, closed and withdrawn along with the Gloria trocar. The Gloria was reinserted and the suction device was placed through it. The right lower quadrant was irrigated and suctioned and then inspected for bleeding. None was seen. The laparoscopic was removed and replaced through the Gloria trocar and 5 mm trocars were removed under direct vision. There was no bleeding from trocar sites. Insufflation was discontinued. The laparoscopic was removed and gas was allowed to escape from the peritoneal cavity. The fascia at the Gloria site was then closed with a [id number]-eg-[id number] suture of 0 Polysorb. Holding sutures were tied to 1 another another. Skin incisions were closed with subcuticular sutures of 4-0 Polysorb and Steri-Strips and dry sterile dressings were applied. Sponge and sharp counts were correct. She tolerated the procedure well and was transported to the recovery room in stable condition. There were no immediate complications.
[2021-01-11] MEDS: hydrALAZINE HCl 20 MG/ML VIAL 10 MG IVPUSH (23:09)
[2021-01-11] MEDS: Dextrose 5 % and Lactated Ring 1,000 ML 80 ML IVCONT (23:10)
[2021-01-11] MEDS: Acetaminophen 325 MG TABLET 650 MG PO (23:10)
[2021-01-12] VITALS: BP 115/57; PULSE 101; RESP 16; TEMP 36.6; O2SAT 93
[2021-01-12 03:19] VITALS: BP 117/60; PULSE 95; RESP 18; TEMP 36.3; O2SAT 94
[2021-01-12] MEDS: Acetaminophen 325 MG TABLET 650 MG PO (06:08)
--- NOTE | 2021-01-12 07:03 | HO.POSTANES ---
Post Anesthesia Evaluation Post Anesthesia Evaluation Vital Signs: Vital Signs Temp Pulse Resp BP Pulse Ox 01/12/21 03:19 97.4 F 95 18 117/60 94 01/12/21 00:00 97.9 F 101 H 16 115/57 L 93 01/11/21 23:09 93 139/75 01/11/21 22:45 98.0 F 93 16 139/75 96 01/11/21 22:07 93 24 H 140/56 H 96 01/11/21 22:02 100 24 H 167/77 H 92 01/11/21 21:57 103 H 24 H 169/72 H 93 01/11/21 21:52 102 H 26 H 161/75 H 94 01/11/21 21:47 103 H 26 H 141/75 H 95 01/11/21 21:42 101 H 26 H 155/77 H 96 01/11/21 21:37 96 26 H 150/66 H 97 01/11/21 21:32 93 24 H 174/64 H 96 01/11/21 21:27 91 24 H 176/75 H 97 01/11/21 21:22 97 24 H 186/73 H 96 01/11/21 21:17 93 24 H 172/80 H 96 01/11/21 21:12 98 24 H 182/83 H 96 01/11/21 21:07 98.3 F 90 22 H 170/78 H 100 01/11/21 21:04 94 Anesthesia: General Endotracheal-GETA Mental Status: Awake Pain Control: Satisfactory Nausea/Vomiting: None Hydration: Adequate Anesthesia-Related Issues: No Anes. Related Issues
[2021-01-12 07:25] LABS: Hematocrit 39.5 % (37-47); Hemoglobin 12.8 g/dl (12.0-16.0); Mean Corpuscular HGB Conc 32.4 g/dl (31.0-35.0); Mean Corpuscular Hemoglobin 31.3 pg (27.0-33.0); Mean Corpuscular Volume 96.6 fL (80-98); Mean Platelet Volume 10.2 fL (9.4-12.3); Platelet Count 235 X10*3/uL (160-400); Red Blood Count 4.09 X10*6/uL (4.20-5.50); Red Cell Distribution Width 12.5 % (11.0-16.0); White Blood Count 14.6 X10*3/uL (4.8-10.8)
[2021-01-12 08:00] VITALS: BP 138/66; PULSE 92; RESP 16; TEMP 36.7; O2SAT 90
[2021-01-12 08:22] LABS: Blood Urea Nitrogen 6 mg/dL (9-16); Estimated Glomerular Filt Rate > 60; Glucose Fasting 187 mg/dL (60-99)
--- NOTE | 2021-01-12 08:40 | PM.PNGS ---
Subjective Subjective Date of Service: 01/12/21 Interval history: Feels much better Denies significant pain Hungry today Physical Exam Vital Signs: Vital Signs: Last Vital Signs Temp 97.4 F 01/12/21 03:19 Pulse 95 01/12/21 03:19 Resp 18 01/12/21 03:19 BP 117/60 01/12/21 03:19 Pulse Ox 94 01/12/21 03:19 Oxygen Flow Rate 1 01/11/21 21:04 Body Mass Index 23.6 Laboratory Results - last 24 hr 01/11/21 01/11/21 01/11/21 13:03 13:03 13:03 WBC 18.9 H RBC 4.59 Hgb 14.6 Hct 44.2 MCV 96.3 MCH 31.8 MCHC 33.0 RDW 12.7 Plt Count 238 D MPV 9.4 Immature Gran % (A uto) 0.5 H Neut % (Auto) 80.0 H Lymph % (Auto) 11.3 L [place] % (Auto) 7.5 Eos % (Auto) 0.4 Baso % (Auto) 0.3 Lymph # (Auto) 2.1 [place] # (Auto) 1.4 H Eos # (Auto) 0.1 Baso # (Auto) 0.1 Abs Immat Gran (au to) 0.10 H Absolute Neuts (au to) 15.1 H Absolute Nucleated RBC 0.000 Nucleated RBC % (a uto) 0.0 Sodium 137 Potassium 4.3 Chloride 97 Carbon Dioxide 31 H Anion Gap 13 BUN 6 L Creatinine 0.57 Estim Creat Clear Calc 78.2 Estimated GFR > 60 Random Glucose 101 Fasting Glucose Lactic Acid Calcium 10.2 Magnesium 1.8 Total Bilirubin 0.9 Direct Bilirubin 0.3 AST 12 D ALT 15 Alkaline Phosphata se 84 Total Protein 7.1 Albumin 4.3 Urine Color YELLOW Urine Appearance CLEAR Urine pH 6.5 Ur Specific [place] <= 1.005 Urine Protein NEG Urine Glucose (UA) NEG Urine Ketones NEG Urine Blood TRACE Urine Nitrite NEG Ur Leukocyte Leti ase NEG Urine RBC 0-2 Urine WBC 0 Ur Squamous Epith Cells TRACE Urine Bacteria TRACE COVID-19 (MAXIMINO) COVID-19 Clin Com 01/11/21 01/11/21 01/12/21 14:36 18:37 06:45 WBC 14.6 H RBC 4.09 L Hgb 12.8 Hct 39.5 MCV 96.6 MCH 31.3 MCHC 32.4 RDW 12.5 Plt Count 235 MPV 10.2 Immature Gran % (A uto) Neut % (Auto) Lymph % (Auto) [place] % (Auto) Eos % (Auto) Baso % (Auto) Lymph # (Auto) [place] # (Auto) Eos # (Auto) Baso # (Auto) Abs Immat Gran (au to) Absolute Neuts (au to) Absolute Nucleated RBC 0.000 Nucleated RBC % (a uto) 0.0 Sodium Potassium Chloride Carbon Dioxide Anion Gap BUN Creatinine Estim Creat Clear Calc Estimated GFR Random Glucose Fasting Glucose Lactic Acid 1.0 Calcium Magnesium Total Bilirubin Direct Bilirubin AST ALT Alkaline Phosphata se Total Protein Albumin Urine Color Urine Appearance Urine pH Ur Specific Grav[place] y Urine Protein Urine Glucose (UA) Urine Ketones Urine Blood Urine Nitrite Ur Leukocyte Leti ase Urine RBC Urine WBC Ur Squamous Epith Cells Urine Bacteria COVID-19 (MAXIMINO) Negative COVID-19 Clin Com See Note 01/12/21 06:45 WBC RBC Hgb Hct MCV MCH MCHC RDW Plt Count MPV Immature Gran % (A uto) Neut % (Auto) Lymph % (Auto) [place] % (Auto) Eos % (Auto) Baso % (Auto) Lymph # (Auto) [place] # (Auto) Eos # (Auto) Baso # (Auto) Abs Immat Gran (au to) Absolute Neuts (au to) Absolute Nucleated RBC Nucleated RBC % (a uto) Sodium Potassium Chloride Carbon Dioxide Anion Gap BUN 6 L Creatinine 0.55 Estim Creat Clear Calc 81.0 Estimated GFR > 60 Random Glucose Fasting Glucose 187 H D Lactic Acid Calcium Magnesium Total Bilirubin Direct Bilirubin AST ALT Alkaline Phosphata se Total Protein Albumin Urine Color Urine Appearance Urine pH Ur Specific [place] Urine Protein Urine Glucose (UA) Urine Ketones Urine Blood Urine Nitrite Ur Leukocyte Leti ase Urine RBC Urine WBC Ur Squamous Epith Cells Urine Bacteria COVID-19 (MAXIMINO) COVID-19 Clin Com Const: General: comfortable and no acute distress Resp: Effort & Inspection: normal respiratory effort GI: Other: Soft, nondistended, no guarding or rebound, dressings dry Progress Note: A&P Assessment and plan (1) Appendicitis: Status: Acute Assessment and Plan: Status post laparoscopic appendectomy Doing very well Appears comfortable On regular diet Okay to DC home today Discussed with patient Will seen in the office Fall Risk Details Current Medications: Current Medications Generic Name Dose Route Start Last Admin Trade Name Adele PRN Reason Stop Dose Admin Acetaminophen 650 mg 01/12/21 00:00 01/12/21 06:08 Acetaminophen 325 Mg Tablet PO 650 mg Q6H SALTY Administration Albuterol Sulfate 2.5 mg 01/11/21 21:04 Albuterol Sulfate (0.083%) 2.5 Mg/3 Ml Vial.Neb INHALE ONCE PRN Wheezing Albuterol Sulfate 2 puff 01/12/21 06:37 Albuterol Sulfate 90 Mcg 8 Gm Inhaler INHALE RQ4H PRN shortness of breath, wheezing Fluticasone Propionate 2 puff 01/12/21 08:00 01/12/21 07:51 Fluticasone Propionate 100 Mcg Blst.W.Dev INHALE Not Given RBID SALTY Fluticasone Propionate 2 spray 01/12/21 09:00 Fluticasone Propionate Nasal 16 Gm [place] NOSTRIL-B DAILY SALTY Dextrose/Lactated Ringer's 1,000 mls @ 80 mls/hr 01/11/21 22:35 01/11/21 23:10 D5lr IVCONT 80 mls/hr .[id number] SALTY Administration Lisinopril 20 mg 01/12/21 09:00 Lisinopril 20 Mg Tablet PO DAILY SALTY Protocol Lorazepam 0.5 mg 01/12/21 09:00 Lorazepam 0.5 Mg Tablet PO DAILY SALTY Morphine Sulfate 4 mg 01/11/21 22:35 Morphine Sulfate 4 Mg/Ml Cartridge IVPUSH Q3H PRN Pain, severe Ondansetron HCl 4 mg 01/11/21 22:35 Ondansetron Hcl 4 Mg/2 Ml Vial IVPUSH Q8H PRN Nausea Oxycodone HCl 5 mg 01/11/21 22:35 Oxycodone Hcl Immed Release 5 Mg Tablet PO Q4H PRN Pain, Moderate (Pain Scale 4-6 Time Spent With Patient Time: Total time spent is greater than 50% in coordination of care (as documented) at patient's floor/unit and/or counseling patient: Time with patient: 15 - 24 minutes Procedures Date of Service Date of Service: 01/12/21
--- NOTE | 2021-01-12 08:44 | MHC.CM.PN ---
pt lives c her spouse and daughter in their home. she reports that she is independent in her care. her family can help her c any needs she may have , this will include a ride home at dc. pt denies the need for vna at dc. dc plan is home no svcs. cm to cont. to follow.
[2021-01-12] MEDS: lisinopriL 20 MG TABLET PO (08:45)
[2021-01-12] MEDS: LORazepam 0.5 MG TABLET PO (08:46)
[2021-01-12 08:47] LABS: Anion Gap 14 (12-20); Calcium 8.9 mg/dL (8.4-10.2); Carbon Dioxide 27 mmol/L (22-29); Chloride 102 mmol/L (96-108); Potassium 3.9 mmol/L (3.3-5.1); Sodium 139 mmol/L (135-145)
[2021-01-12] MEDS: oxyCODONE HCl Immed Release 5 MG TABLET PO (09:29)
--- NOTE | 2021-01-13 10:14 | P.DS_ITS ---
DS: Providers Provider Date of Service: 01/13/21 Date of admission: 01/11/21 18:51 Primary care physician: Filipe Murcia MD DS: Diagnosis Discharge Diagnosis (1) Appendicitis: Status: Acute DS: Medications Discharge Medications Home Medications: Previous Rx's Medication Instructions Recorded tiotropium bromide 18 mcg capsule 1 cap INHALATION DAILY #90 cap 06/20/20 with inhalation device clobetasol 0.05 % topical cream 1 appl TOPICAL BID 14 Days #60 g 11/04/20 lisinopril 20 mg tablet 20 mg PO DAILY #30 tab 11/11/20 albuterol sulfate 90 mcg/actuation 2 puff INHALATION Q4-6H PRN #8.5 g 11/18/20 aerosol inhaler lorazepam 0.5 mg tablet 0.5 mg PO DAILY #15 tab 12/09/20 fluticasone propionate 50 2 spray INTRANASAL DAILY #3 ea 12/29/20 mcg/actuation nasal spray,suspension ProAir HFA 90 mcg/actuation 2 puff PO Q4-6H PRN #8.5 g NS 12/30/20 aerosol inhaler azithromycin 250 mg tablet See Rx Instructions PO .COMPLEX #6 01/06/21 tab ezetimibe 10 mg tablet 10 mg PO DAILY #30 tab 01/06/21 fluticasone furoate 200 1 inh INHALATION DAILY #28 ea 01/06/21 mcg-vilanterol 25 mcg/dose inhalation powder oxycodone-acetaminophen [Percocet] 1 - 2 tab PO Q4-6H PRN #30 tab 01/12/21 DS: Summary Hospital Course Hospital Course: This is a 60 y/o female who presented to the emergency department on January 12, 2021 with a two day history of worsening right sided abdominal pain without nausea, vomiting, fever, chills or loss of appetite. Examination and CT scan of the abdomen and pelvis were consistent with acute appendicitis. Past history was significant for COPD. Exam: Alert, appeared uncomfortable but not in acute distress Lungs - diffuse wheezes Heart - RRR Abdomen - soft, tender right side most significant in right lower quadrant Hospital course: Options for treatment were discussed. She elected to proceed with laparoscopic cholecystectomy, which was done on the day of admission. Findings were consi stent with acute appendicitis, pathology is pending. She tolerated the procedure well and by the following day was tolerating a regular diet. Pain control was good on oral anagesics. She was stable from a respiratory perspective and was ready for discharge home. Status at Discharge Cognitive/behavioral status at discharge: Alert and oriented Functional status at discharge: independent ambulation Time Spent with Patient Time attestation: Total time spent providing and/or coordinating discharge services: Discharge coordination time: Less than 30 minutes Quality: Stroke Does the patient have a stroke diagnosis?: No Physical Exam Vital Signs: Vital Signs: Last Vital Signs Temp 98.1 F 01/12/21 08:00 Pulse 92 01/12/21 08:00 Resp 16 01/12/21 08:00 BP 138/66 01/12/21 08:00 Pulse Ox 90 L 01/12/21 08:00 Oxygen Flow Rate 1 01/11/21 21:04 Body Mass Index 23.6 Const: General: cooperative, no acute distress, alert and awake Resp: Effort & Inspection: normal respiratory effort GI: Other: soft, nondistended, dressings dry and intact DS: Data Data Completed and Pending Pending studies at discharge: Pending at discharge 01/11/21 20:23 Surgical [PTH] Routine Labs on day of discharge: Preliminary micro results at discharge 01/11/21 16:21 Blood Culture - Preliminary Blood - Venous No growth after 24 hours. 01/11/21 14:36 Blood Culture - Preliminary Blood - Venous No growth after 24 hours. Discharge Plan Discharge Patient Disposition: Home, Self-Care Discharge Diagnosis: acute appendicitis Referrals: Antwan Flores MD [Physician] - 1 Week Po,Filipe Jones MD [Primary Care Provider] - 1 Week Discharge Medications: New oxycodone-acetaminophen [Percocet] 5-325 mg tablet 1 - 2 tab PO Q4-6H PRN (Reason: pain) Qty: 30 RF: 0 Continued tiotropium bromide [Spiriva with HandiHaler] 18 mcg capsule, w/inhalation device 1 cap inhalation DAILY Qty: 90 RF: 0 clobetasol 0.05 % cream 1 appl topical BID 14 Days Qty: 60 RF: 0 lisinopril 20 mg tablet 20 mg PO DAILY Qty: 30 RF: 11 albuterol sulfate 90 mcg/actuation HFA aerosol inhaler 2 puff inhalation Q4-6H PRN (Reason: bronchospasm) Qty: 8.5 RF: 0 lorazepam 0.5 mg tablet 0.5 mg PO DAILY Qty: 15 RF: 0 fluticasone propionate [Flonase Allergy Relief] 50 mcg/actuation spray,suspension 2 spray intranasal DAILY Qty: 3 RF: 3 albuterol sulfate [ProAir HFA] 90 mcg/actuation HFA aerosol inhaler 2 puff PO Q4-6H PRN (Reason: bronchospasm) Qty: 8.5 RF: 0 Breo Ellipta 200-25 mcg/dose blister with device 1 inh inhalation DAILY Qty: 28 RF: 4 azithromycin [Zithromax] 250 mg tablet See Rx Instructions PO .COMPLEX Qty: 6 RF: 0 ezetimibe [Zetia] 10 mg tablet 10 mg PO DAILY Qty: 30 RF: 2 Discharge Orders: Discharge Order (Routine); Ordered 01/12/21 Ordered By: Antwan Flores Activity on Discharge: No heavy lifting Stand Alone Forms: Patient Portal Discharge page Activity Restrictions/Additional Instructions: If the incision area is tender, you may apply an ice pack for short intervals (No more than 20 minutes on, followed by at least 20 minutes off). Do not apply heat. Do not use creams, lotions, or topical antibiotics unless instructed to do so by your surgeon. These can cause infection or allergic reaction. OK to shower Ok to change BandAids daily No lifting more than 15 lb No strenuous activities Call the office for follow-up in 2 weeks - with Dr. Flores Call Your Doctor If: -Your temperature exceeds 101.5? F -You experience excessive pain or swelling -You have an unexpected reaction to medication -You have excessive bleeding -You experience continued vomiting/nausea -Your incision begins to separate -Your incision shows signs of infection such as increased redness, swelling, excessive pain, drainage (light blood or clear fluid is normal) or heat Care Plan Goals: dc home today ffup in office wound care Health Concerns: has HTN and COPD pain control Plan of Treatment: plan to dc home today ffup in office Assessment: doing well s/p laparoscopic appendectomy Discharge Date/Time: 01/12/21 10:53
== END 2021-01-12 10:53 | disposition home or self-care (01) | DRG 343 ==
LOC: HO.ED 15:52 → HO.S3 18:52
PROVIDERS: Physician Assistant; Admitting Provider Surgery; Emergency Provider Emergency Medicine; PCP Internal Medicine; Visit Provider Surgery
PROC: 0DTJ4ZZ Resection of Appendix, Percutaneous Endoscopic Approach (ICD-10-PCS; CPT 44970; principal; 2021-01-11 18:00)
DX: K35.80 Unspecified acute appendicitis (principal); F41.9 Anxiety disorder, unspecified; J43.1 Panlobular emphysema; E78.00 Pure hypercholesterolemia, unspecified; I10 Essential (primary) hypertension; Z20.822 Contact with and (suspected) exposure to COVID-19; Z88.0 Allergy status to penicillin; Z88.2 Allergy status to sulfonamides; Z79.51 Long term (current) use of inhaled steroids; Z79.899 Other long term (current) drug therapy
CPT/HCPCS: 44970; 36415; 74177; 76830; 76856; 80048; 80076; 81001; 83605; 83735; 85025; 85027; 87040; 87635; 88304; 93005; 96365; 96368; 99024; 99285; J1100; J1956; J2250; J2405; J3010; Q9967

== ENCOUNTER → 2021-01-26 10:06 | Outpatient (BNVA) | payer OTHER, SELFPAY | PROVIDERS: PCP Internal Medicine; Visit Provider Surgery ==

== ENCOUNTER 2021-07-03 11:16 | Outpatient (REF) | payer OTHER, SELFPAY | END 2021-07-03 11:17 | disposition home or self-care (01) | LOC: HO.LAB 11:16 | PROVIDERS: PCP Internal Medicine; Visit Provider Nurse Practitioner Family | DX: Z20.822 Contact with and (suspected) exposure to COVID-19 (principal); J44.1 Chronic obstructive pulmonary disease with (acute) exacerbation | CPT/HCPCS: U0003; U0005 ==

== ENCOUNTER 2021-10-10 19:25 | Inpatient (IN) | payer MEDICARE, OTHER, SELFPAY ==
--- NOTE | ~2021-10-10 | XR_ITS ---
EXAMINATION: XR CHEST CLINICAL INFORMATION: Dyspnea COMPARISON: Prior chest December 2017 TECHNIQUE: Frontal view of the chest was obtained. FINDINGS: No significant abnormality is noted involving the heart, lungs, mediastinum, bony thorax or soft tissues. XR/XR chest 1V IMPRESSION: Unremarkable examination.
[2021-10-10 19:29] VITALS: BP 136/97; PULSE 91; RESP 20; TEMP 36.5; O2SAT 94; BMI 22.6
--- NOTE | 2021-10-10 20:20 | ECG_ITS ---
Test Reason : DYSPNEA Blood Pressure : / mmHG Vent. Rate : 083 BPM Atrial Rate : 083 BPM P-R Int : 128 ms QRS Dur : 076 ms QT Int : 372 ms P-R-T Axes : 077 049 066 degrees QTc Int : 437 ms Normal sinus rhythm Possible Left atrial enlargement Nonspecific ST and T wave abnormality Abnormal ECG When compared with ECG of 11-JAN-2021 17:16, Premature ventricular complexes are no longer Present Referred By: Melody Jeter Electronically Signed By:ALEXIS MILES MD
--- NOTE | 2021-10-10 20:24 | ED.SOB ---
HPI - SOB/Dyspnea General Chief Complaint: Dyspnea Stated Complaint: sob hx. of copd Time Seen by Provider: 10/10/21 20:17 Source: patient Mode of arrival: ambulatory Limitations: no limitations History of Present Illness HPI Narrative: 61-year-old female with a history of COPD, anxiety, chronic lymphedema, hypertension, hyperlipidemia here with reports of increasing shortness of breath over the last 4 days unrelieved with home albuterol. Patient tells me that her COPD is often triggered by stress. She has had a recent move and this has been quite stressful for her. She also ran out of her lorazepam at home. Patient denies any chest pain, cough, fever, leg swelling or pain. +smoking history Related Data Home Medications Medication Instructions Recorded Confirmed albuterol sulfate 90 mcg/actuation 2 puff PO Q6H PRN 10/10/21 10/10/21 aerosol inhaler fluticasone furoate 200 1 puff PO DAILY 10/10/21 10/10/21 mcg-vilanterol 25 mcg/dose inhalation powder (Breo Ellipta) lisinopril 20 mg tablet 1 tab PO DAILY 10/10/21 10/10/21 tiotropium bromide 18 mcg capsule 1 cap INHALATION DAILY 10/10/21 10/10/21 with inhalation device (Spiriva with HandiHaler) Previous Rx's Medication Instructions Recorded inhalational spacing device #1 ea 03/09/21 (Flexichamber) ezetimibe 10 mg tablet (Zetia) 10 mg PO DAILY #90 tab 04/07/21 trazodone 50 mg tablet 50 mg PO BEDTIME PRN 30 Days #30 04/08/21 tab lorazepam 0.5 mg tablet 0.5 mg PO DAILY PRN 30 Days #15 tab 09/15/21 Allergies Allergy/AdvReac Type Severity Reaction Status Date / Time amoxicillin [Augmentin] Allergy Unknown Unknown Verified 10/10/21 19:29 atorvastatin Allergy Unknown Unknown Verified 10/10/21 19:29 cephalexin [From KEFLEX] Allergy Unknown STOMACH Verified 10/10/21 19:29 UPSET clavulanic acid [Augmentin] Allergy Unknown Under Verified 10/10/21 19:29 latex [LATEX] Allergy Unknown RASH Verified 10/10/21 19:29 Sulfa (Sulfonamide Allergy Unknown STOMACH Verified 10/10/21 19:29 Antibiotics) UPSET [SULFA (SULFONAMIDE ANTIBIOTICS)] fluticasone AdvReac Intermediate Anxiety Verified 10/10/21 19:29 [From [facility]] salmeterol AdvReac Intermediate Anxiety Verified 10/10/21 19:29 [facility] Review of Systems Review of Systems: Yes all other systems are reviewed and are negative Constitutional: Constitutional: Reports no additional constitutional complaints, Denies body ache(s), Denies chills, Denies fever(s), Denies headache(s) and Denies weakness Eyes: Eyes: Reports no additional eye complaints and Denies change in vision ENT: Reports system reviewed and no additional complaints, except as documented, Denies dizziness, Denies headache(s), Denies nasal congestion, Denies nasal discharge and Denies neck pain Cardiovascular: Cardiovascular: Reports no additional cardiovascular complaints, Denies chest pain, Denies leg edema and Reports dyspnea Respiratory: Respiratory: Reports no additional respiratory complaints, Denies cough and Reports dyspnea Gastrointestinal: Gastrointestinal: Reports no additional gastrointestinal complaints, Denies abdominal pain, Denies diarrhea, Denies nausea and Denies vomiting Genitourinary: Genitourinary: Reports no additional female genitourinary complaints and Denies urinary incontinence Musculoskeletal: Musculoskeletal: Reports no additional musculoskeletal complaints, Denies back pain, Denies arthralgias, Denies joint swelling, Denies neck pain, Denies numbness and Denies tingling Integumentary/Breasts: Skin/Breast: Reports system reviewed and no additional complaints, except as docu and Denies rash Neurologic: Reports system reviewed and no additional complaints, except as documented, Denies Abnormal speech present, Denies dizziness, Denies headache(s), Denies numbness, Denies tingling and Denies weakness [facility] Past Medical History Attestation statement: The following information was validated with the patient. Source: old records reviewed and nursing notes reviewed Medical History Acute appendicitis Anxiety Colonoscopy refused COPD (chronic obstructive pulmonary disease) COPD exacerbation Hypercholesterolemia Hypertension Lymphedema Recurrent urinary tract infection Surgical History History of section History of tubal ligation Hx of tonsillectomy S/P laparoscopic appendectomy Family History Family History Mother Lung cancer Maternal Grandmother Lung cancer Sister Pancreatic cancer Other Myocardial infarct Social History Social History Household Members: Spouse Housing: House Do you presently have visiting nurse or other home services: No Alcohol intake: unknown Patient Tobacco Use Status: Current everyday Tobacco user e-Cigarette/Vaping Use: Never Used Second Hand Smoke Exposure: Yes Use of substances other than those prescribed or required for medical reasons: No Advance Directives: Yes Advance Directives on File: Yes Advance Directives Date on File: 01/11/21 Patient : No service: No Current occupational status: unemployed Cognitive needs: No Hearing needs: No Vision needs: No Physical Exam Vital Signs: Vital Signs: Last Vital Signs Temp 97.7 F 10/10/21 19:29 Pulse 91 10/10/21 20:34 Resp 20 10/10/21 19:29 BP 136/97 H 10/10/21 19:29 Pulse Ox 94 10/10/21 19:29 BMI result Body Mass Index 22.6 Const: General: cooperative, healthy appearing, comfortable and no acute distress Orientation/consciousness: patient oriented x3 Limitations: no limitations HENMT: Head: Yes normal to inspection Ears: hearing grossly normal bilaterally, TM's normal bilaterally and TM normal on the right General nose exam: Normal external nose present Face and sinus: Yes normal facial exam Mouth: Normal oral and palatal mucosa present Throat: Yes posterior oropharynx normal, Yes tonsils normal and Yes uvula midline Eyes: General: appearance normal, both eyes and all related structures Pupils: Equal, round and reactive pupils present Neck: Neck: Yes normal visual inspection, Yes full ROM, Yes no lymphadenopathy and Yes no meningeal signs Chest: Chest palpation & inspection: normal inspection of the chest Resp: Other: tachypnea with rate 22 expiratory wheezing throughout Cardio: Rate: regular rate Rhythm: regular rhythm Peripheral pulses: Peripheral pulses 2+ throughout GI: Inspection: Yes normal to inspection Palpation (GI): Soft to palpation and nontender Auscultation: normal bowel sounds Back/Spine/Pelvis: Thoracic/Lumbar Spine: thoracic and lumbar spine normal to inspection Skin: General skin exam: no rashes or lesions noted Neuro: General: patient oriented x3, no meningeal signs, no focal motor deficits and normal sensation to monofilament Cranial nerves: Yes Equal, round and reactive pupils present Cognition (Neuro): normal cognition Speech: No Abnormal speech present Gait exam (Neuro): Normal gait present Motor exam (neuro): 5/5 motor strength present throughout Extrem: General: Yes normal to inspection Course Course Course Narrative: 61-year-old female with a history of COPD here with reports of shortness of breath and wheezing for the last 4 days unrelieved with her home albuterol. Patient tells me her COPD is typically triggered by stress and she had a recent move it was quite stressful. Patient also ran out of her home lorazepam. On arrival the patient has mild tachypnea with expiratory wheezing throughout. Will give DuoNeb, Solu-Medrol, magnesium. Will check labs, EKG, chest x-ray, COVID screen -hypoxia and tachypnea are from chronic lung disease and not infection 2153-labs unremarkable. Chest x-ray, COVID screen EKG are all normal. Went to speak to patient. She has mild expiratory wheezing that continued. Unfortunately the patient is still requiring supplemental oxygen with a room air saturation of 88% at rest with associated tachypnea. Discussed with medicine who accepted admission MDM - SOB/Dyspnea Differential Diagnosis Differential diagnosis: Likely acute exacerbation of chronic obstructive airways disease, pneumonia and pulmonary embolism Medical Records Attestation: I reviewed the patient's medical records. Lab Data Attestation: I reviewed the patient's lab results. Result diagrams: 10/10/21 20:32 10/10/21 20:32 Labs: Lab Results 10/10/21 10/10/21 10/10/21 Range/Units 20:32 20:32 20:32 WBC 10.0 (4.8-10.8) X10*3/uL RBC 4.85 (4.20-5.50) X10*6/uL Hgb 15.8 (12.0-16.0) g/dl Hct 46.8 (37.0-47.0) % MCV 96.5 (80.0-98.0) fL MCH 32.6 (27.0-33.0) pg MCHC 33.8 (31.0-35.0) g/dl RDW 13.9 (11.0-16.0) % Plt Count 252 (160-400) X10*3/uL MPV 9.7 (9.4-12.3) fL Immature Gran % (Auto) 0.3 (0.0-0.4) % Neut % (Auto) 65.5 (45-73) % Lymph % (Auto) 21.8 (20-40) % [place] % (Auto) 10.4 (2-11) % Eos % (Auto) 1.3 (0-4) % Baso % (Auto) 0.7 (0-2) % Lymph # (Auto) 2.2 (1.2-4.9) X10*3/uL [place] # (Auto) 1.0 (0.1-1.2) X10*3/uL Eos # (Auto) 0.1 (0.0-0.4) X10*3/uL Baso # (Auto) 0.1 (0.0-0.2) X10*3/uL Abs Immat Gran (auto) 0.03 (0.00-0.03) X10*3/uL Absolute Neuts (auto) 6.6 (2.0-8.3) x10*3/uL Absolute Nucleated RBC 0.000 (0.0-0.012) X10*3/uL Nucleated RBC % (auto) 0.0 (0.0-0.2) /100WBC PT (9.9-13.0) SEC INR (0.9-1.1) D-Dimer High Sensitivty NG/ML Sodium 139 (135-145) mmol/L Potassium 3.8 (3.3-5.1) mmol/L Chloride 102 (96-108) mmol/L Carbon Dioxide 27 (22-29) mmol/L Anion Gap 14 (12-20) BUN 12 (9-16) mg/dL Creatinine 0.68 (0.5-1.4) mg/dL Estim Creat Clear Calc 64.7 Estimated GFR > 60 Random Glucose 99 (60-115) mg/dL Calcium 9.9 D (8.4-10.2) mg/dL Magnesium 1.8 (1.6-2.6) mg/dL Total Bilirubin 0.4 (0.0-1.0) mg/dL Direct Bilirubin 0.2 (0.0-0.5) mg/dL AST 23 D (5-31) U/L ALT 17 (0-31) U/L Alkaline Phosphatase 84 (39-117) U/L Troponin I High Sens 6.6 (<3.5-17.0) ng/L B-Natriuretic Peptide (<100) pg/mL Total Protein 7.2 (6.5-8.0) g/dL Albumin 4.3 (3.5-5.0) g/dL COVID-19 (MAXIMINO) (Negative) COVID-19 Clin Com 10/10/21 10/10/21 10/10/21 Range/Units 20:32 20:32 20:32 WBC (4.8-10.8) X10*3/uL RBC (4.20-5.50) X10*6/uL Hgb (12.0-16.0) g/dl Hct (37.0-47.0) % MCV (80.0-98.0) fL MCH (27.0-33.0) pg MCHC (31.0-35.0) g/dl RDW (11.0-16.0) % Plt Count (160-400) X10*3/uL MPV (9.4-12.3) fL Immature Gran % (Auto) (0.0-0.4) % Neut % (Auto) (45-73) % Lymph % (Auto) (20-40) % [place] % (Auto) (2-11) % Eos % (Auto) (0-4) % Baso % (Auto) (0-2) % Lymph # (Auto) (1.2-4.9) X10*3/uL [place] # (Auto) (0.1-1.2) X10*3/uL Eos # (Auto) (0.0-0.4) X10*3/uL Baso # (Auto) (0.0-0.2) X10*3/uL Abs Immat Gran (auto) (0.00-0.03) X10*3/uL Absolute Neuts (auto) (2.0-8.3) x10*3/uL Absolute Nucleated RBC (0.0-0.012) X10*3/uL Nucleated RBC % (auto) (0.0-0.2) /100WBC PT 11.8 (9.9-13.0) SEC INR 1.0 (0.9-1.1) D-Dimer High Sensitivty < 150 NG/ML Sodium (135-145) mmol/L Potassium (3.3-5.1) mmol/L Chloride (96-108) mmol/L Carbon Dioxide (22-29) mmol/L Anion Gap (12-20) BUN (9-16) mg/dL Creatinine (0.5-1.4) mg/dL Estim Creat Clear Calc Estimated GFR Random Glucose (60-115) mg/dL Calcium (8.4-10.2) mg/dL Magnesium (1.6-2.6) mg/dL Total Bilirubin (0.0-1.0) mg/dL Direct Bilirubin (0.0-0.5) mg/dL AST (5-31) U/L ALT (0-31) U/L Alkaline Phosphatase (39-117) U/L Troponin I High Sens (<3.5-17.0) ng/L B-Natriuretic Peptide 47 (<100) pg/mL Total Protein (6.5-8.0) g/dL Albumin (3.5-5.0) g/dL COVID-19 (MAXIMINO) Negative (Negative) COVID-19 Clin Com See Note Imaging Data Chest x-ray: Attestation: I personally reviewed and interpreted this imaging study as follows: Radiologist's impression: [place] [id number] XRay Report Signed Patient: Ginna Mirza MR#: [id number] : 1960 Acct:[id number] Age/Sex: 61 / F ADM Date: 10/10/21 Loc: .ED Attending Dr: Ordering Physician: Villa Castillo MD Date of Service: 10/10/21 Procedure(s): XR chest 1V Accession Number(s): [id number] cc: Villa Castillo MD~ EXAMINATION: XR CHEST CLINICAL INFORMATION: Dyspnea COMPARISON: Prior chest December 2017 TECHNIQUE: Frontal view of the chest was obtained. FINDINGS: No significant abnormality is noted involving the heart, lungs, mediastinum, bony thorax or soft tissues. XR/XR chest 1V IMPRESSION: Unremarkable examination. ? ECG Data Attestation: I personally reviewed and interpreted this ECG as follows: ECG interpretation date: 10/10/21 ECG interpretation time: 20:25 Interpretation: Normal sinus rhythm with rate 83, normal CT, normal QRS, normal QT. Discharge Plan Discharge Clinical Impression: COPD (chronic obstructive pulmonary disease) Patient Disposition: Admitted As Inpatient
[2021-10-10 20:34] VITALS: PULSE 91; RESP 18; O2SAT 96
[2021-10-10 20:43] LABS: MANUAL DIFF FLAG NO
[2021-10-10 20:47] LABS: Basophils Absolute Auto 0.1 X10*3/uL (0.0-0.2); Basophils Percent Auto 0.7 % (0-2); Eosinophils Absolute Auto 0.1 X10*3/uL (0.0-0.4); Eosinophils Percent Auto 1.3 % (0-4); Hematocrit 46.8 % (37.0-47.0); Hemoglobin 15.8 g/dl (12.0-16.0); Imm Gran Abs Auto 0.03 X10*3/uL (0.00-0.03); Imm Gran Pct Auto 0.3 % (0.0-0.4); Lymphocytes Absolute Auto 2.2 X10*3/uL (1.2-4.9); Lymphocytes Percent Auto 21.8 % (20-40); Mean Corpuscular HGB Conc 33.8 g/dl (31.0-35.0); Mean Corpuscular Hemoglobin 32.6 pg (27.0-33.0); Mean Corpuscular Volume 96.5 fL (80.0-98.0); Mean Platelet Volume 9.7 fL (9.4-12.3); Monocytes Percent Auto 10.4 % (2-11); Neutrophils Absolute Auto 6.6 x10*3/uL (2.0-8.3); Neutrophils Percent Auto 65.5 % (45-73); Platelet Count 252 X10*3/uL (160-400); Red Blood Count 4.85 X10*6/uL (4.20-5.50); Red Cell Distribution Width 13.9 % (11.0-16.0)
[2021-10-10 21:02] LABS: Alanine Aminotransferase 17 U/L (0-31); Albumin Level 4.3 g/dL (3.5-5.0); Alkaline Phosphatase 84 U/L (39-117); Anion Gap 14 (12-20); Aspartate Amino Transferase 23 U/L (5-31); Bilirubin Direct 0.2 mg/dL (0.0-0.5); Bilirubin Total 0.4 mg/dL (0.0-1.0); Blood Urea Nitrogen 12 mg/dL (9-16); Calcium 9.9 mg/dL (8.4-10.2); Carbon Dioxide 27 mmol/L (22-29); Chloride 102 mmol/L (96-108); Creatinine Clr Calc Pharmacy 64.7; Estimated Glomerular Filt Rate > 60; Glucose Random 99 mg/dL (60-115); Magnesium 1.8 mg/dL (1.6-2.6); Potassium 3.8 mmol/L (3.3-5.1); Sodium 139 mmol/L (135-145); Total Protein 7.2 g/dL (6.5-8.0)
[2021-10-10 21:05] LABS: COVID-19 Test Negative (Negative)
[2021-10-10] MEDS: methylPREDNISolone Sod Succ 125 MG/2 ML VIAL IVPUSH (21:06)
[2021-10-10] MEDS: LORazepam 2 MG/ML VIAL 0.5 MG IVPUSH (21:06)
[2021-10-10] MEDS: Albuterol/Iprat 2.5/0.5MG 3 ML AMPUL.NEB INHALE (21:07)
[2021-10-10] MEDS: Magnesium Sulfate/H2O 2 GM/50 ML PIGGYBACK IV (21:07)
[2021-10-10 21:11] LABS: B Type Natriuretic Peptide 47 pg/mL (<100); Troponin-I High Sensitivity 6.6 ng/L (<3.5-17.0)
[2021-10-10 21:17] LABS: Prothrombin Time 11.8 SEC (9.9-13.0)
--- NOTE | 2021-10-10 21:24 | PC.NURSE ---
Patient's oxygen saturation dropped down to 88% post nebulizer treatment. Patient does not look labored in her restorations. Patient placed on 2 liters nasal cannula
[2021-10-10 21:30] LABS: D Dimer High Sensitivity < 150 NG/ML
--- NOTE | 2021-10-10 22:12 | P.HPHOSP_ITS ---
History of Present Illness Date of Service: 10/10/21 Chief Complaint: Shortness of breath 61-year-old female with a past medical history of hypertension, hyperlipidemia, COPD-not on home oxygen, anxiety, history of recurrent UTI presented to the hospital today with a chief complaint of shortness of breath. Patient reports that over the past 4 days she has been having shortness shortness of breath which has been gradually worsening; not improving with her home inhalers. Denies any fever chills cough. Denies any chest pain or palpitations. Given worsening symptoms decided to come to the ER for further evaluation. Denies any GI symptoms. Review of all other systems is negative except mentioned above ER course: Per ER team patient on presentation noted to be saturating 88% on room air; placed on supplemental oxygen; patient noted to have wheezing; given nebulizers, Solu-Medrol, magnesium with mild improvement in symptoms. But still noted to be hypoxic; decided to admit to the hospital for further management. Also reported that patient EKG was nonischemic, D-dimer negative; troponin negative. [facility] Medical History Acute appendicitis Anxiety Colonoscopy refused COPD (chronic obstructive pulmonary disease) COPD exacerbation Hypercholesterolemia Hypertension Lymphedema Recurrent urinary tract infection Family History Mother Lung cancer Maternal Grandmother Lung cancer Sister Pancreatic cancer Other Myocardial infarct Surgical History History of section History of tubal ligation Hx of tonsillectomy S/P laparoscopic appendectomy Social History Household Members: Spouse Housing: House Do you presently have visiting nurse or other home services: No Alcohol intake: unknown Patient Tobacco Use Status: Current everyday Tobacco user e-Cigarette/Vaping Use: Never Used Second Hand Smoke Exposure: Yes Use of substances other than those prescribed or required for medical reasons: No Advance Directives: Yes Advance Directives on File: Yes Advance Directives Date on File: 01/11/21 Patient : No service: No Current occupational status: unemployed Cognitive needs: No Hearing needs: No Vision needs: No Meds Allergies Allergy/AdvReac Type Severity Reaction Status Date / Time amoxicillin [Augmentin] Allergy Unknown Unknown Verified 10/10/21 19:29 atorvastatin Allergy Unknown Unknown Verified 10/10/21 19:29 cephalexin [From KEFLEX] Allergy Unknown STOMACH Verified 10/10/21 19:29 UPSET clavulanic acid [Augmentin] Allergy Unknown Under Verified 10/10/21 19:29 latex [LATEX] Allergy Unknown RASH Verified 10/10/21 19:29 Sulfa (Sulfonamide Allergy Unknown STOMACH Verified 10/10/21 19:29 Antibiotics) UPSET [SULFA (SULFONAMIDE ANTIBIOTICS)] fluticasone AdvReac Intermediate Anxiety Verified 10/10/21 19:29 [From Wixela Inhub] salmeterol AdvReac Intermediate Anxiety Verified 10/10/21 19:29 [From Wixela Inhub] Active Medications: Current Medications Magnesium Sulfate (Magnesium Sulfate/H2o) 2 gm in 50 mls @ 25 mls/hr IV ONCE ONE Stop: 10/10/21 22:20 Last Admin: 10/10/21 21:07 Dose: 25 mls/hr Documented by: Physical Exam Vital Signs and Narrative: Vital Signs: Last Vital Signs Temp 97.7 F 10/10/21 19:29 Pulse 91 10/10/21 20:34 Resp 20 10/10/21 19:29 BP 136/97 H 10/10/21 19:29 Pulse Ox 94 10/10/21 19:29 BMI result Body Mass Index 22.6 Gen: Appears be in no acute distress HEENT: NCAT, Moist mucosa. Pulmonary: Bilateral expiratory wheezing present CVS: Normal S1-S2 Abdomen: BS+, Soft, Nontender Extremities: Warm well perfused Neuro: Alert and awake. Results Labs CBC and Chem 7: 10/10/21 20:32 10/10/21 20:32 Labs: Laboratory Results - last 24 hr 10/10/21 10/10/21 10/10/21 20:32 20:32 20:32 MCV 96.5 MCH 32.6 MCHC 33.8 RDW 13.9 Plt Count 252 MPV 9.7 Immature Gran % (Auto) 0.3 Neut % (Auto) 65.5 Lymph % (Auto) 21.8 [place] % (Auto) 10.4 Eos % (Auto) 1.3 Baso % (Auto) 0.7 Lymph # (Auto) 2.2 [place] # (Auto) 1.0 Eos # (Auto) 0.1 Baso # (Auto) 0.1 Abs Immat Gran (auto) 0.03 Absolute Neuts (auto) 6.6 Absolute Nucleated RBC 0.000 Nucleated RBC % (auto) 0.0 PT INR D-Dimer High Sensitivty Anion Gap 14 Estim Creat Clear Calc 64.7 Estimated GFR > 60 Random Glucose 99 Calcium 9.9 D Magnesium 1.8 Total Bilirubin 0.4 Direct Bilirubin 0.2 AST 23 D ALT 17 Alkaline Phosphatase 84 B-Natriuretic Peptide Total Protein 7.2 Albumin 4.3 COVID-19 (MAXIMINO) Negative COVID-19 Clin Com See Note 10/10/21 10/10/21 20:32 20:32 MCV MCH MCHC RDW Plt Count MPV Immature Gran % (Auto) Neut % (Auto) Lymph % (Auto) [place] % (Auto) Eos % (Auto) Baso % (Auto) Lymph # (Auto) [place] # (Auto) Eos # (Auto) Baso # (Auto) Abs Immat Gran (auto) Absolute Neuts (auto) Absolute Nucleated RBC Nucleated RBC % (auto) PT 11.8 INR 1.0 D-Dimer High Sensitivty < 150 Anion Gap Estim Creat Clear Calc Estimated GFR Random Glucose Calcium Magnesium Total Bilirubin Direct Bilirubin AST ALT Alkaline Phosphatase B-Natriuretic Peptide 47 Total Protein Albumin COVID-19 (MAXIMINO) COVID-19 Clin Com Imaging Radiologist's Impressions: Impressions Chest X-Ray 10/10/21 19:42 IMPRESSION: Unremarkable examination. Assessment and Plan (1) COPD exacerbation: Status: Acute Plan 61-year-old female with a past medical history of hypertension, hyperlipidemia, COPD-not on home oxygen, anxiety, history of recurrent UTI presented to the hospital today with a chief complaint of shortness of breath. Noted to be in acute COPD exacerbation. Admitted for further management. Acute COPD exacerbation: Continue nebulizations standing and p.r.n. Solu-Medrol IV Azithromycin Supplemental oxygen with goal oxygen saturation 93% D-dimer negative EKG nonischemic Troponin negative History of hypertension/hyperlipidemia/anxiety: Continue home medications. DVT prophylaxis: Lovenox Code status: Full code Quality Stroke Does the patient have a stroke diagnosis?: No VTE Prior VTE?: No VTE Risk Level:: Medical - moderate - high VTE Device Contraindication: Treatment Not Indicated VTE Drug Contraindication: N/A - Med Ordered
[2021-10-10] MEDS: Enoxaparin Sodium 40 MG/0.4 ML SYRINGE SUBCUT (23:10)
[2021-10-10] MEDS: Azithromycin 500 MG TABLET PO (23:10)
[2021-10-10 23:16] VITALS: BP 180/88; PULSE 90; RESP 22; O2SAT 92
[2021-10-11] VITALS (17 sets, daily range): BP systolic 134–197; BP diastolic 69–118; PULSE 87–104; RESP 14–22; TEMP 36.4–36.8; O2SAT 91–98
[2021-10-11] MEDS: methylPREDNISolone Sod Succ 40 MG/ML VIAL IVPUSH ×4 (03:33→19:50)
--- NOTE | 2021-10-11 03:39 | PC.NURSE ---
This insurance underwriter sales was informed by [employer] that patients blood pressure was 196/103. This insurance underwriter sales rechecked the patient's blood pressure with the appropriate size cuff
[2021-10-11 06:58] LABS: Basophils Percent Auto 0.3 % (0-2); Hematocrit 48.1 % (37.0-47.0); Imm Gran Abs Auto 0.04 X10*3/uL (0.00-0.03); Imm Gran Pct Auto 0.7 % (0.0-0.4); Lymphocytes Absolute Auto 0.3 X10*3/uL (1.2-4.9); Lymphocytes Percent Auto 5.6 % (20-40); MANUAL DIFF FLAG SCAN; Mean Corpuscular HGB Conc 33.3 g/dl (31.0-35.0); Mean Corpuscular Hemoglobin 32.1 pg (27.0-33.0); Mean Corpuscular Volume 96.6 fL (80.0-98.0); Mean Platelet Volume 9.4 fL (9.4-12.3); Monocytes Percent Auto 0.5 % (2-11); Neutrophils Absolute Auto 5.7 x10*3/uL (2.0-8.3); Neutrophils Percent Auto 92.9 % (45-73); Platelet Count 241 X10*3/uL (160-400); Red Blood Count 4.98 X10*6/uL (4.20-5.50); Red Cell Distribution Width 13.7 % (11.0-16.0); SCAN SMEAR FLAG 1; White Blood Count 6.1 X10*3/uL (4.8-10.8)
[2021-10-11] MEDS: 0.9 % Sodium Chloride Flush 3 ML SYRINGE IVFLUSH ×3 (07:16→19:50)
--- NOTE | 2021-10-11 07:21 | PC.NURSE ---
lungs - slight exp wheezing all lobes, aware
--- NOTE | 2021-10-11 07:22 | PC.NURSE ---
pt is aware of admission
[2021-10-11 07:26] LABS: SLIDE REVIEW VERIFIED
[2021-10-11] MEDS: Albuterol/Iprat 2.5/0.5MG 3 ML AMPUL.NEB INHALE ×4 (08:16→19:44)
--- NOTE | 2021-10-11 08:19 | PHA.MEDREC ---
Pharmacy Consult ? Medication Reconciliation Pharmacy has completed the medication reconciliation. No remarkable issues. Nettie Randall, CarolaD
[2021-10-11] MEDS: Famotidine 20 MG TABLET PO ×2 (08:44→19:49)
--- NOTE | 2021-10-11 09:08 | HO.PM.IMPN ---
Subjective Subjective Date of Service: 10/11/21 Review of Systems Follow up COPD exacerbation NO sob still with cough and green phlegm Lots of stress in her life recently Physical Exam Vital Signs: Vital Signs: Last Vital Signs Temp 97.7 F 10/11/21 07:02 Pulse 93 10/11/21 08:42 Resp 18 10/11/21 08:42 BP 197/101 H 10/11/21 07:18 Pulse Ox 91 L 10/11/21 08:42 BMI result Body Mass Index 22.6 Appearing in no acute distress lung sounds exp wheezing heart regular rate rhythm, clear S1, S2 positive bowel sounds, abdomen is soft, nontender neuro patient is alert x3, no focal deficits Objective Data Active Medications Acetaminophen (Acetaminophen 325 Mg Tablet) 650 mg PO Q6H PRN PRN Reason: Pain, Mild (Pain Scale 1-3) Albuterol/Ipratropium (Albuterol/Iprat 2.5/0.5mg 3 Ml Ampul.Neb) 3 ml INHALE RQ4H WHILE AWAKE [facility] Last Admin: 10/11/21 08:16 Dose: 3 ml Documented by: RO Azithromycin (Azithromycin 500 Mg Tablet) 500 mg PO Q24H [facility] Last Admin: 10/10/21 23:10 Dose: 500 mg Documented by: ANGEL Benzonatate (Benzonatate 100 Mg Capsule) 100 mg PO TID PRN PRN Reason: Cough Enoxaparin Sodium (Enoxaparin Sodium 40 Mg/0.4 Ml Syringe) 40 mg SUBCUT Q24H [facility] Last Admin: 10/10/21 23:10 Dose: 40 mg Documented by: ANGEL Famotidine (Famotidine 20 Mg Tablet) 20 mg PO BID [facility] Last Admin: 10/11/21 08:44 Dose: 20 mg Documented by: YASH Levalbuterol HCl (Levalbuterol Hcl 1.25 Mg/0.5 Ml Vial.Neb) 1.25 mg INHALE Q6H PRN PRN Reason: Shortness of Breath/Wheezing Melatonin (Melatonin 3 Mg Tablet) 6 mg PO BEDTIME PRN PRN Reason: Insomnia Methylprednisolone Sodium Succinate (Methylprednisolone Sod Succ 40 Mg/Ml Vial) 40 mg IVPUSH Q6H [facility] Last Admin: 10/11/21 08:44 Dose: 40 mg Documented by: YASH Senna (Sennosides 8.6 Mg Tablet) 17.2 mg PO BEDTIME PRN PRN Reason: Constipation Sodium Chloride (0.9 % Sodium Chloride Flush 3 Ml Syringe) 3 ml IVFLUSH QSHIFT SALTY Last Admin: 10/11/21 07:16 Dose: 3 ml Documented by: YASH Labs CBC & Chem 7: 10/11/21 06:48 10/11/21 08:28 Labs: Laboratory Results - last 24 hr 10/10/21 10/10/21 10/10/21 20:32 20:32 20:32 MCV 96.5 MCH 32.6 MCHC 33.8 RDW 13.9 Plt Count 252 MPV 9.7 Immature Gran % (Auto) 0.3 Neut % (Auto) 65.5 Lymph % (Auto) 21.8 [place] % (Auto) 10.4 Eos % (Auto) 1.3 Baso % (Auto) 0.7 Lymph # (Auto) 2.2 [place] # (Auto) 1.0 Eos # (Auto) 0.1 Baso # (Auto) 0.1 Abs Immat Gran (auto) 0.03 Absolute Neuts (auto) 6.6 Absolute Nucleated RBC 0.000 Nucleated RBC % (auto) 0.0 Smear Tech's Comments PT INR D-Dimer High Sensitivty Anion Gap 14 Estim Creat Clear Calc 64.7 Estimated GFR > 60 Random Glucose 99 Calcium 9.9 D Magnesium 1.8 Total Bilirubin 0.4 Direct Bilirubin 0.2 AST 23 D ALT 17 Alkaline Phosphatase 84 B-Natriuretic Peptide Total Protein 7.2 Albumin 4.3 COVID-19 (MAXIMINO) Negative COVID-19 Clin Com See Note 10/10/21 10/10/21 10/11/21 20:32 20:32 06:48 MCV 96.6 MCH 32.1 MCHC 33.3 RDW 13.7 Plt Count 241 MPV 9.4 Immature Gran % (Auto) 0.7 H Neut % (Auto) 92.9 H Lymph % (Auto) 5.6 L [place] % (Auto) 0.5 L Eos % (Auto) 0.0 Baso % (Auto) 0.3 Lymph # (Auto) 0.3 L [place] # (Auto) 0.0 L Eos # (Auto) 0.0 Baso # (Auto) 0.0 Abs Immat Gran (auto) 0.04 H Absolute Neuts (auto) 5.7 Absolute Nucleated RBC 0.000 Nucleated RBC % (auto) 0.0 Smear Tech's Comments VERIFIED PT 11.8 INR 1.0 D-Dimer High Sensitivty < 150 Anion Gap Estim Creat Clear Calc Estimated GFR Random Glucose Calcium Magnesium Total Bilirubin Direct Bilirubin AST ALT Alkaline Phosphatase B-Natriuretic Peptide 47 Total Protein Albumin COVID-19 (MAXIMINO) COVID-19 Clin Com Assessment and Plan (1) Generalized anxiety disorder: Status: Acute (2) COPD (chronic obstructive pulmonary disease): Status: Acute Plan 61 year old women admitted with COPD exacerbation COPD exacerbation still wheezing, no hypoxia scheduled Solumedrol, albuterol Azithromycin Hypertension with elevated blood pressure Continue Lisinopril Anxiety stress from a move recently Continue ativan DVT prophylaxis with Lovenox Attending Dr. Talbot Full code Quality Stroke Does the patient have a stroke diagnosis?: No VTE Prior VTE?: No VTE Risk Level:: Medical - moderate - high VTE Device Contraindication: Treatment Not Indicated VTE Drug Contraindication: N/A - Med Ordered
[2021-10-11 09:13] LABS: Anion Gap 16 (12-20); Blood Urea Nitrogen 8 mg/dL (9-16); Calcium 9.5 mg/dL (8.4-10.2); Carbon Dioxide 24 mmol/L (22-29); Chloride 99 mmol/L (96-108); Creatinine Clr Calc Pharmacy 69.8; Estimated Glomerular Filt Rate > 60; Glucose Random 230 mg/dL (60-115); Potassium 4.9 mmol/L (3.3-5.1); Sodium 134 mmol/L (135-145)
[2021-10-11] MEDS: LORazepam 0.5 MG TABLET PO ×2 (09:36→21:08)
[2021-10-11] MEDS: lisinopriL 20 MG TABLET PO (09:36)
[2021-10-11] MEDS: Acetaminophen 325 MG TABLET 650 MG PO (09:36)
[2021-10-11] MEDS: Multivitamin TABLET 1 TAB PO (09:52)
[2021-10-11] MEDS: Fluticasone/Vilanterol 200/25 BLST.W.DEV 1 PUFF INHALE (09:58)
--- NOTE | 2021-10-11 10:37 | PC.NURSE ---
pt seen by tenzin (hosp, senior restaurant manager) pt is aware of plan of care.
--- NOTE | 2021-10-11 11:02 | PC.NURSE ---
pt c/o urinary frequency and thinks that she has a uti. md aware, pt to have u/a done.
[2021-10-11 11:57] LABS: Appearance Urine CLEAR; Color Urine YELLOW; Glucose Urine UA NEG (NEG); Leukocyte Esterase Urine TRACE (NEG); Nitrite Urine NEG (NEG); PH 6.5 (5.0-8.0); Specific Gravity - Urine <= 1.005 (1.005-1.025); UACC Culture Trigger YES; Urine Blood TRACE (NEG); Urine Ketones NEG (NEG); Urine Protein NEG (NEG-TRACE)
[2021-10-11 12:05] LABS: Bacteria Urine TRACE /LPF; RBC Urine 0-2 /HPF (0); Squamous Epithelial Cell Urine TRACE /LPF; UACC CULT YES
--- NOTE | 2021-10-11 14:15 | PC.NURSE ---
rn to rn given to ravin pt aware of plan of care.
[2021-10-11] MEDS: Azithromycin 500 MG TABLET PO (19:49)
[2021-10-11] MEDS: Enoxaparin Sodium 40 MG/0.4 ML SYRINGE SUBCUT (19:50)
[2021-10-11] MEDS: Benzonatate 100 MG CAPSULE PO (19:57)
[2021-10-12] MEDS: methylPREDNISolone Sod Succ 40 MG/ML VIAL IVPUSH ×2 (02:17→09:07)
[2021-10-12 04:00] VITALS: BP 150/77; PULSE 82; RESP 16; TEMP 36.8; O2SAT 97
[2021-10-12] MEDS: 0.9 % Sodium Chloride Flush 3 ML SYRINGE IVFLUSH (07:47)
[2021-10-12 07:51] VITALS: BP 153/78; PULSE 80; RESP 18; TEMP 36.5; O2SAT 95
[2021-10-12] MEDS: Albuterol/Iprat 2.5/0.5MG 3 ML AMPUL.NEB INHALE (08:04)
[2021-10-12 08:06] VITALS: PULSE 87; RESP 20; O2SAT 96
[2021-10-12] MEDS: Fluticasone/Vilanterol 200/25 BLST.W.DEV 1 PUFF INHALE (08:06)
[2021-10-12] MEDS: Famotidine 20 MG TABLET PO (09:07)
[2021-10-12] MEDS: Multivitamin TABLET 1 TAB PO (09:07)
[2021-10-12] MEDS: lisinopriL 20 MG TABLET PO (09:07)
--- NOTE | 2021-10-12 10:16 | P.DS_ITS ---
DS: Providers Provider Date of Service: 10/12/21 Date of admission: 10/10/21 22:09 Primary care physician: Filipe Murcia MD Attending physician on discharge: Usman Hand Discharging clinician: Maricruz Mirza DS: Diagnosis Discharge Diagnosis (1) Generalized anxiety disorder: Status: Acute (2) COPD (chronic obstructive pulmonary disease): Status: Acute DS: Summary Hospital Course Hospital Course: HP as per admitting provider 61-year-old female with a past medical history of hypertension, hyperlipidemia, COPD-not on home oxygen, anxiety, history of recurrent UTI presented to the hospital today with a chief complaint of shortness of breath.? Patient reports that over the past 4 days she has been having shortness shortness of breath which has been gradually worsening; not improving with her home inhalers.?Denies any fever chills cough.? Denies any chest pain or palpitations.?Given worsening symptoms decided to come to the ER for further evaluation.?Denies any GI symptoms.?Review of all other systems is negative except mentioned above ER course:Per ER team patient on presentation noted to be saturating 88% on room air; placed on supplemental oxygen; patient noted to have wheezing; given nebulizers, Solu-Medrol, magnesium with mild improvement in symptoms.? But still noted to be hypoxic; decided to admit to the hospital for further management.?Also reported that patient EKG was nonischemic, D-dimer negative; troponin negative . COPD exacerbation. Less wheezing, no hypoxia. Treated with scheduled Solumedrol, albuterol and Azithromycin. Home with doxycycline and prednisone. Requested a refill on her albuterol inhalor. Time Spent with Patient Time attestation: Total time spent providing and/or coordinating discharge services: Discharge coordination time: Greater than 30 minutes Quality: Stroke Does the patient have a stroke diagnosis?: No Physical Exam Vital Signs: Vital Signs: Last Vital Signs Temp 97.7 F 10/12/21 07:51 Pulse 87 10/12/21 08:06 Resp 20 10/12/21 08:06 BP 153/78 H 10/12/21 07:51 Pulse Ox 95 10/12/21 07:51 BMI result Body Mass Index 22.6 Appearing in no acute distress head is normocephalic atraumatic eyes pupils are PERRLA sclera is anicteric mouth throat mucous membranes are intact and moist neck is supple no lymphadenopathy, no JVD noted lung sounds mild wheezing heart regular rate rhythm, clear S1, S2 positive bowel sounds, abdomen is soft, nontender neuro patient is alert x3, no focal deficits DS: Data Data Completed and Pending Completed studies during hospitalization [Text1]: Procedures Resection of Appendix, Percutaneous Endoscopic Approach (01/11/21) Labs on day of discharge: Laboratory Results - last 24 hr 10/11/21 11:48 Urine Color YELLOW Urine Appearance CLEAR Urine pH 6.5 Ur Specific [place] <= 1.005 Urine Protein NEG Urine Glucose (UA) NEG Urine Ketones NEG Urine Blood TRACE Urine Nitrite NEG Ur Leukocyte Esterase TRACE H Urine RBC 0-2 Urine WBC 1-4 Ur Squamous Epith Cells TRACE Urine Bacteria TRACE Discharge Plan Discharge Anticipated Discharge Date/Time: 10/12/21 10:06 Patient Disposition: Home, Self-Care Discharge Diagnosis: COPD exacerbation Referrals: Po,Filipe Jones MD [Primary Care Provider] - 1 Week Discharge Medications: New doxycycline hyclate 100 mg tablet 100 mg PO BID Qty: 8 0RF prednisone 10 mg tablet 40 mg PO DAILY Qty: 16 0RF Continued (DME) Flexichamber Spacer See Rx Instructions .ROUTE .MEDSUPPLY Qty: 1 0RF Rx Instructions: As directed lorazepam 0.5 mg tablet 0.5 mg PO DAILY PRN (Reason: agitation) 30 Days Qty: 15 1RF lisinopril 20 mg tablet 1 tab PO DAILY 0RF Spiriva with HandiHaler 18 mcg capsule, w/inhalation device 1 cap inhalation DAILY 0RF Breo Ellipta 200-25 mcg/dose blister with device 1 puff PO DAILY 0RF multivitamin Tablet 1 tab PO DAILY 0RF albuterol sulfate 90 mcg/actuation HFA aerosol inhaler 2 puff PO Q6H PRN (Reason: wheezing) Qty: 8.5 0RF Discharge Orders: Discharge Order (Routine); Ordered 10/12/21 Ordered By: Maricruz Mirza Diet: advance to usual diet Activity on Discharge: As tolerated Stand Alone Forms: Patient Portal Discharge page Care Plan Goals: Resolution of symptoms Health Concerns: COPD exacerbation Plan of Treatment: continue antibiotics as prescribed follow up with your primary care provider as needed Assessment: See discharge summary
--- NOTE | 2021-10-12 10:55 | MHC.CM.PN ---
met with pt and pt mis to be dcd tody no servceis are needed to transport
[2021-10-12] MEDS: LORazepam 0.5 MG TABLET PO (11:10)
== END 2021-10-12 11:29 | disposition home or self-care (01) | DRG 192 ==
LOC: HO.ED 22:10 → HO.EDOVER 22:17 → HO.S3 10-11 13:53
PROVIDERS: Nurse Practitioner Family; Admitting Provider Hospitalist; Emergency Provider Internal Medicine; PCP Internal Medicine; Visit Provider Nurse Practitioner Acute Care
DX: J44.1 Chronic obstructive pulmonary disease with (acute) exacerbation (principal); E78.5 Hyperlipidemia, unspecified; F41.1 Generalized anxiety disorder; Z20.822 Contact with and (suspected) exposure to COVID-19; Z87.440 Personal history of urinary (tract) infections; Z87.891 Personal history of nicotine dependence; Z88.0 Allergy status to penicillin; Z88.2 Allergy status to sulfonamides; Z79.52 Long term (current) use of systemic steroids; Z79.899 Other long term (current) drug therapy
CPT/HCPCS: 36415; 71045; 80048; 80076; 81001; 83735; 83880; 84484; 85025; 85379; 85610; 87086; 87635; 93005; 94640; 99285; J1650; J2060; J2920; J2930; J3475

== ENCOUNTER 2022-02-18 13:40 | Outpatient (REF) | payer OTHER, SELFPAY ==
[2022-02-18 15:04] LABS: Influenza A PCR NEGATIVE (Negative); Influenza B PCR NEGATIVE (Negative); Resp Syncy Virus RNA Qual PCR NEGATIVE (Negative); SARS COV2 PCR INHOUSE NEGATIVE (Negative)
== END 2022-02-18 13:41 | disposition home or self-care (01) ==
LOC: HO.LNP 13:40
PROVIDERS: Visit Provider Internal Medicine
DX: R09.89 Other specified symptoms and signs involving the circulatory and respiratory systems (principal); Z20.822 Contact with and (suspected) exposure to COVID-19
CPT/HCPCS: 0241U

== ENCOUNTER 2022-05-22 11:13 | Outpatient (REF) | payer OTHER, SELFPAY ==
--- NOTE | ~2022-05-22 | XR_ITS ---
EXAMINATION: CR X-RAY FOOT AND ANKLE RIGHT CLINICAL INFORMATION: Right foot and ankle pain. COMPARISON: None TECHNIQUE: 3 views each of the right foot and ankle were obtained. And indicator arrow points to the distal aspect of the fifth metatarsal. FINDINGS: The ankle joint and mortise are intact. The tarsal bones are normally aligned. The metatarsals and phalanges are intact. The joint spaces are unremarkable. Small plantar calcaneal spur. The soft tissues are unremarkable. XR/XR foot RT min 3V IMPRESSION: No acute fracture. Specifically the fifth metatarsal is intact.
--- NOTE | ~2022-05-22 | XR_ITS ---
EXAMINATION: CR X-RAY FOOT AND ANKLE RIGHT CLINICAL INFORMATION: Right foot and ankle pain. COMPARISON: None TECHNIQUE: 3 views each of the right foot and ankle were obtained. And indicator arrow points to the distal aspect of the fifth metatarsal. FINDINGS: The ankle joint and mortise are intact. The tarsal bones are normally aligned. The metatarsals and phalanges are intact. The joint spaces are unremarkable. Small plantar calcaneal spur. The soft tissues are unremarkable. XR/XR ankle RT min 3V IMPRESSION: No acute fracture. Specifically the fifth metatarsal is intact.
== END 2022-05-22 11:14 | disposition home or self-care (01) ==
LOC: HO.HMGCX 11:13
PROVIDERS: PCP Internal Medicine; Visit Provider Physician Assistant
DX: M25.571 Pain in right ankle and joints of right foot (principal)
CPT/HCPCS: 73610; 73630

== ENCOUNTER 2022-07-28 12:15 | Outpatient (REF) | payer OTHER, SELFPAY ==
--- NOTE | ~2022-07-28 | XR_ITS ---
EXAMINATION: XR CLAVICLE, RIGHT CLINICAL INFORMATION: Hypertrophy of bone. COMPARISON: None TECHNIQUE: Two views of the right clavicle. FINDINGS: The glenohumeral joint space is normal. There is mild reduction of right AC joint space with inferior spurring. No visible acute fracture, dislocation or subluxation seen. The soft tissues are normal. XR/XR clavicle RT IMPRESSION: Mild degenerative changes right A.C. joint with inferior spurring. No visible acute fracture or dislocation seen.
== END 2022-07-28 12:16 | disposition home or self-care (01) ==
LOC: HO.XRAY 12:15
PROVIDERS: PCP Internal Medicine; Visit Provider Nurse Practitioner Family
DX: M89.311 Hypertrophy of bone, right shoulder (principal)
CPT/HCPCS: 73000

== ENCOUNTER 2022-09-02 11:55 | Outpatient (REF) | payer OTHER, SELFPAY ==
--- NOTE | ~2022-09-02 | US_ITS ---
EXAMINATION: US EXTREMITY NON-VASCULAR. CLINICAL INFORMATION: Palpable area along the right medial clavicle. COMPARISON: Right clavicle 07/28/2022. TECHNIQUE: Limited ultrasound imaging to the medial right clavicle was performed. FINDINGS: Imaging through the medial soft tissues of the right medial clavicle reveals a solid echogenic lesion measuring 1.4 x 1.0 x 0.7 cm. It probably represents hypertrophic bony changes of the medial clavicle. There is no increased vascularity. No fluid collection seen. US/US extremity nonvascular IMPRESSION: Suspect hypertrophic bony changes of the medial right clavicle.
--- NOTE | ~2022-09-02 | MM_ITS ---
EXAMINATION: MM SCREENING DIGITAL BREAST TOMOSYNTHESIS, BILATERAL CLINICAL INFORMATION: Screening. Asymptomatic. The lifetime risk of breast cancer based on the Tyrer-Cuzick Model is 3.6%. COMPARISON: Mammography: October 03, 2020 and studies dating back to April 25, 2015 TECHNIQUE: Digital breast tomosynthesis is performed in both the craniocaudal and mediolateral oblique views along with computer-aided detection (CAD). Synthesized 2D images are generated from the tomosynthesis. FINDINGS: There are scattered areas of fibroglandular density (ACR BI-RADS breast composition Category b). There are no significant masses, abnormal calcifications, or other abnormalities. MM/MM tomosynthesis screening BI IMPRESSION: No significant changes from prior exam. ASSESSMENT: BI-RADS 1: Negative RECOMMENDATION: Routine annual mammography screening. This patient's information was entered into a reminder system with a target due date for their next mammogram.
== END 2022-09-02 11:56 | disposition home or self-care (01) ==
LOC: HO.MAMMO 11:55
PROVIDERS: PCP Internal Medicine; Visit Provider Nurse Practitioner Family
DX: Z12.31 Encounter for screening mammogram for malignant neoplasm of breast (principal); M89.311 Hypertrophy of bone, right shoulder
CPT/HCPCS: 76882; 77063; 77067

== ENCOUNTER 2022-09-22 10:05 | Outpatient (REF) | payer OTHER, SELFPAY ==
[2022-09-22 10:16] LABS: MANUAL DIFF FLAG NO
[2022-09-22 10:44] LABS: Basophils Absolute Auto 0.1 X10*3/uL (0.0-0.2); Basophils Percent Auto 0.8 % (0-2); Eosinophils Absolute Auto 0.3 X10*3/uL (0.0-0.4); Eosinophils Percent Auto 2.2 % (0-4); Hematocrit 45.8 % (37.0-47.0); Hemoglobin 15.1 g/dl (12.0-16.0); Imm Gran Abs Auto 0.05 X10*3/uL (0.00-0.03); Imm Gran Pct Auto 0.4 % (0.0-0.4); Lymphocytes Absolute Auto 2.2 X10*3/uL (1.2-4.9); Lymphocytes Percent Auto 19.9 % (20-40); Mean Corpuscular Hemoglobin 31.9 pg (27.0-33.0); Mean Corpuscular Volume 96.8 fL (80.0-98.0); Mean Platelet Volume 9.9 fL (9.4-12.3); Monocytes Absolute Auto 0.8 X10*3/uL (0.1-1.2); Monocytes Percent Auto 7.4 % (2-11); Neutrophils Absolute Auto 7.8 x10*3/uL (2.0-8.3); Neutrophils Percent Auto 69.3 % (45-73); Platelet Count 225 X10*3/uL (160-400); Red Blood Count 4.73 X10*6/uL (4.20-5.50); Red Cell Distribution Width 12.6 % (11.0-16.0); White Blood Count 11.3 X10*3/uL (4.8-10.8)
[2022-09-22 11:17] LABS: Alanine Aminotransferase 13 U/L (0-31); Albumin Level 4.2 g/dL (3.5-5.0); Alkaline Phosphatase 88 U/L (39-117); Anion Gap 14 (12-20); Aspartate Amino Transferase 18 U/L (5-31); Bilirubin Total 0.7 mg/dL (0.0-1.0); Blood Urea Nitrogen 11 mg/dL (9-16); Calcium 9.2 mg/dL (8.4-10.2); Carbon Dioxide 28 mmol/L (22-29); Chloride 102 mmol/L (96-108); Cholesterol 252 mg/dL; Estimated Glomerular Filt Rate > 60; Glucose Fasting 100 mg/dL (60-99); HDL Cholesterol 64 mg/dL; LDL Cholesterol Calculated 174 mg/dl; Potassium 4.3 mmol/L (3.3-5.1); Sodium 140 mmol/L (135-145); Total Protein 6.7 g/dL (6.5-8.0); Triglycerides 74 mg/dL
[2022-09-22 11:21] LABS: TSH reflex Free T4 1.08 uIU/mL (0.32-4.0)
== END 2022-09-22 10:06 | disposition home or self-care (01) ==
LOC: HO.LAB 10:05
PROVIDERS: PCP Internal Medicine; Visit Provider Nurse Practitioner Family
DX: Z00.00 Encounter for general adult medical examination without abnormal findings (principal)
CPT/HCPCS: 36415; 80053; 80061; 84443; 85025

== ENCOUNTER 2023-01-24 12:47 | Outpatient (REF) | payer OTHER, SELFPAY ==
[2023-01-24 13:29] LABS: Alanine Aminotransferase 20 U/L (0-31); Albumin Level 4.4 g/dL (3.5-5.0); Alkaline Phosphatase 108 U/L (39-117); Anion Gap 15 (12-20); Aspartate Amino Transferase 25 U/L (5-31); Bilirubin Total 0.6 mg/dL (0.0-1.0); Blood Urea Nitrogen 8 mg/dL (9-16); Calcium 9.8 mg/dL (8.4-10.2); Carbon Dioxide 27 mmol/L (22-29); Chloride 100 mmol/L (96-108); Cholesterol 290 mg/dL; Estimated Glomerular Filt Rate > 60; Glucose Random 113 mg/dL (60-115); HDL Cholesterol 84 mg/dL; LDL Cholesterol Calculated 183 mg/dl; Potassium 4.8 mmol/L (3.3-5.1); Sodium 137 mmol/L (135-145); Total Protein 7.7 g/dL (6.5-8.0); Triglycerides 119 mg/dL
[2023-01-24 15:40] LABS: Appearance Urine Clear; Color Urine Yellow; Glucose Urine UA Negative (Negative); Leukocyte Esterase Urine Trace (Negative); Nitrite Urine Negative (Negative); UMIC TRIGGER UACC YES; Urine Blood Negative (Negative); Urine Ketones Negative (Negative); Urine Protein Negative (Neg-Trace)
[2023-01-24 15:42] LABS: Bacteria Urine 2+ (None Seen); Hyaline Casts Urine 0-2 /LPF (0-2); RBC Urine 0-2 /HPF (0-2); Squamous Epithelial Cell Urine 0-2 /HPF (0-2); WBC Urine 0-5 /HPF (0-5)
== END 2023-01-24 12:48 | disposition home or self-care (01) ==
LOC: HO.LAB 12:47
PROVIDERS: PCP Internal Medicine; Visit Provider Internal Medicine
DX: E78.00 Pure hypercholesterolemia, unspecified (principal)
CPT/HCPCS: 36415; 80053; 80061; 81001

== ENCOUNTER 2023-04-22 11:25 | Emergency (ER) | payer OTHER, SELFPAY ==
--- NOTE | ~2023-04-22 | XR_ITS ---
EXAMINATION: XR WRIST, LEFT CLINICAL INFORMATION: Status post reduction COMPARISON: Same day earlier TECHNIQUE: PA and lateral views of the left wrist, obtained in a cast. FINDINGS: Colles fracture of the distal radius seen again without significant interval change since previous study. Because obscured by XR/XR wrist LT 2V IMPRESSION: Comminuted Colles fracture
--- NOTE | ~2023-04-22 | XR_ITS ---
Examination: Left forearm and left wrist CLINICAL INFORMATION: Pain following fall COMPARISON: None TECHNIQUE: AP and lateral views of the forearm and AP oblique and lateral view of the wrist. FINDINGS: 2 views of left wrist revealed fracture of the distal radius with angulation of fragments 3 views of left wrist demonstrate impacted and mildly angulated fracture of distal radius. There is soft tissue swelling surrounding the radiocarpal joint. Carpal bones and metacarpal bones are intact. There is diffuse osteopenia. XR/XR forearm LT 2V IMPRESSION: Colles fractures of the left radius
--- NOTE | ~2023-04-22 | XR_ITS ---
Examination: Left forearm and left wrist CLINICAL INFORMATION: Pain following fall COMPARISON: None TECHNIQUE: AP and lateral views of the forearm and AP oblique and lateral view of the wrist. FINDINGS: 2 views of left wrist revealed fracture of the distal radius with angulation of fragments 3 views of left wrist demonstrate impacted and mildly angulated fracture of distal radius. There is soft tissue swelling surrounding the radiocarpal joint. Carpal bones and metacarpal bones are intact. There is diffuse osteopenia. XR/XR wrist LT min 3V IMPRESSION: Colles fractures of the left radius
[2023-04-22 11:37] VITALS: BP 217/114; PULSE 100; RESP 18; TEMP 36.8; BMI 23.6
--- NOTE | 2023-04-22 11:41 | ED.UPPEXIN ---
HPI - Extremity Injury (Upper) General Chief Complaint: Extremity Injury, Upper Stated Complaint: ? sprained wrist Time Seen by Provider: 04/22/23 11:56 Source: patient Mode of arrival: ambulatory Limitations: no limitations History of Present Illness HPI narrative: 63 yo right hand dominant female with history of COPD, anxiety, HTN, HLD, lymphedema, insomnia who presents to the ER for evaluation of left wrist pain and swelling after she tripped and fell last night around dinnertime. She states she tripped and fell on her outstretched hand. She has had pain and swelling in the wrist since. She did not hear any pops or snaps the time of the fall. She denies any numbness or tingling. She applied ice and elevated wrist last night. She woke up with ongoing symptoms so decided to come in the ER today. MD complaint: injury to: left and wrist Onset (ago): day(s) (1) Other Extremity Injury: left: wrist Other injuries: none Handedness: right Place: home Severity: moderate Severity scale (1-10): 6 Relieving factors: immobilization and rest Exacerbating factors: movement of extremity Context: fall Associated symptoms: weakness Treatments prior to arrival: cold therapy Related Data Home Medications Medication Instructions Recorded Confirmed multivitamin 1 tab PO DAILY 10/11/21 02/10/23 Previous Rx's Medication Instructions Recorded inhalational spacing device #1 ea 03/09/21 (Flexichamber spacer) lisinopril 30 mg tablet 30 mg PO DAILY #90 tabs 01/04/23 rosuvastatin 5 mg tablet 5 mg PO DAILY #30 tabs 02/10/23 sertraline 25 mg tablet 25 mg PO DAILY #30 tabs 02/10/23 fluticasone furoate 200 1 ea PO DAILY #60 ea 03/03/23 mcg-vilanterol 25 mcg/dose inhalation powder (Breo Ellipta) tiotropium bromide 18 mcg capsule 1 cap inhalation DAILY #30 03/03/23 with inhalation device (Spiriva inhalations with HandiHaler) albuterol sulfate 90 mcg/actuation 2 puff PO Q6H PRN for wheezing 03/21/23 aerosol inhaler #8.5 grams hydroxyzine HCl 10 mg tablet 10 mg PO BID PRN anxiety #60 tabs 03/21/23 oxycodone 5 mg tablet 5 mg PO Q8H PRN severe pain (scale 09/01/23 score 7-10) #6 tabs Allergies Allergy/AdvReac Type Severity Reaction Status Date / Time amoxicillin [Augmentin] Allergy Unknown Unknown Verified 02/10/23 12:59 atorvastatin Allergy Unknown Unknown Verified 02/10/23 12:59 cephalexin [From KEFLEX] Allergy Unknown STOMACH Verified 02/10/23 12:59 UPSET clavulanic acid [Augmentin] Allergy Unknown Under Verified 02/10/23 12:59 latex [LATEX] Allergy Unknown RASH Verified 02/10/23 12:59 Sulfa (Sulfonamide Allergy Unknown STOMACH Verified 02/10/23 12:59 Antibiotics) UPSET [SULFA (SULFONAMIDE ANTIBIOTICS)] fluticasone AdvReac Intermediate Anxiety Verified 02/10/23 12:59 [From Wixela Inhub] salmeterol AdvReac Intermediate Anxiety Verified 02/10/23 12:59 [From Wixela Inhub] Review of Systems Review of Systems: Yes all other systems are reviewed and are negative [facility] Past Medical History Medical History (Updated 04/22/23 @ 13:01 by BARRINGTON Carey) Anxiety Clavicle enlargement Colonoscopy refused COPD (chronic obstructive pulmonary disease) Generalized anxiety disorder Hospital discharge follow-up Hypercholesterolemia Hypertension Lymphedema Recurrent urinary tract infection Right ankle sprain Screening for breast cancer Surgical History (Updated 10/29/22 @ 12:38 by Filipe Murcia MD) History of section History of tubal ligation Hx of tonsillectomy S/P laparoscopic appendectomy Family History Family History Mother Lung cancer Maternal Grandmother Lung cancer Sister Pancreatic cancer Other Myocardial infarct Social History Social History Household Members: Spouse Housing: Apartment Do you presently have visiting nurse or other home services: No Alcohol intake: unknown Patient Tobacco Use Status: Former Tobacco user Quit Date: 09/21/21 Tobacco use type: Cigarette e-Cigarette/Vaping Use: Never Used Second Hand Smoke Exposure: No Advance Directives: No Advance Directives Information Provided: No Advance Directives Date on File: 01/11/21 service: No Current occupational status: unemployed Current occupation: rt hand Cognitive needs: No Hearing needs: No Vision needs: No Physical Exam Vital Signs: Vital Signs: Last Vital Signs Temp 98.3 F 04/22/23 11:37 Pulse 92 04/22/23 13:54 Resp 18 04/22/23 13:54 BP 180/80 H 04/22/23 13:54 Pulse Ox 95 04/22/23 13:54 O2 Del Method Room Air 04/22/23 13:54 BMI result Body Mass Index 23.6 Appearance: Alert. Oriented X3. No acute distress. HEENT: normal inspection CVS: Normal heart rate and rhythm. Pulses normal. Respiratory: No respiratory distress. Skin: Skin warm and dry. Normal skin color. Normal skin turgor. No rashes. Extremities: left wrist and distal forearm with moderate generalized swelling, erythema/ ecchymosis to the lateral aspect of the distal left forearm. There is 1+ radial pulse with tenderness along the entire distal wrist. Normal thumb to finger adduction. Pain with hand grasp. cap refill <3 sec Neuro: Oriented X 3. No motor deficit. No sensory deficit. Course Course Course Narrative: This is an RME: Additional HPI, ROS, PE not included below will be deferred to primary provider. The 63-year-old female, with a hx of COPD, presenting to emergency department complaints of left wrist pain status post mechanical fall which occurred last night. FOOSH last night after tripping over a cord. Obvious swelling noted to her left wrist, unable to supinate or pronate wrist. TTP throughout wrist, hand nontender. BP elevated likely due to pain Plan: Xrays Medications Administered Discontinued Medications Generic Name Dose Route Start Last Admin Trade Name Freq PRN Reason Stop Dose Admin Lidocaine HCl 30 ml 04/22/23 12:26 04/22/23 12:45 Lidocaine Hcl 1 % 20 Ml Vial INFILTRATI 04/22/23 12:27 30 ml ONCE ONE Administration Lorazepam 1 mg 04/22/23 13:44 04/22/23 13:53 Lorazepam 1 Mg Tablet PO 04/22/23 13:45 1 mg ONCE ONE Administration Oxycodone HCl 5 mg 04/22/23 12:46 04/22/23 12:55 Oxycodone Hcl Immed Release 5 Mg Tablet PO 04/22/23 12:47 5 mg ONCE ONE Administration Medical Decision Making Medical Decision Making MDM Narrative: 63-year-old [id number] female presents the ER for evaluation of left wrist pain after she fell on outstretched hand last night. There is moderate swelling and deformity of the left wrist. She is neurovascularly intact. X-ray is showing a distal radial fracture with mild angulation, impacted. Case discussed with Dr. Beckham. Images reviewed. reduction attempted, patient with significant swelling. splint applied and repeat x-rays showed similar appearance, comminuted fx. BP improved w/ pain meds. No chest pain, vision changes or headache. Patient is stable for d/c home with pain control and outpatient follow up. instructed to call the office today and make an appointment for next week Differential Diagnosis Differential Diagnoses: The differential diagnosis associated with the presentation includes distal radial fracture, ulnar fracture, colles fracture, hand fracture, contusion, sprain Independent Interpretation I performed an independent interpretation of an: Plain X-Ray Interpretation: distal radial fx w/ slight angulation on lateral view, soft tissue swelling Radiology Impression Discussion of test interpretation with radiology: I have reviewed the radiologist's reading. Radiologist Impression: Examination: Left forearm and left wrist CLINICAL INFORMATION: Pain following fall COMPARISON: None TECHNIQUE: AP and lateral views of the forearm and AP oblique and lateral view of the wrist. FINDINGS: 2 views of left wrist revealed fracture of the distal radius with angulation of fragments 3 views of left wrist demonstrate impacted and mildly angulated fracture of distal radius. There is soft tissue swelling surrounding the radiocarpal joint. Carpal bones and metacarpal bones are intact. There is diffuse osteopenia. XR/XR wrist LT min 3V IMPRESSION: ?Colles fractures of the left radius EXAMINATION: XR FINGER, LEFT CLINICAL INFORMATION: Pain in fourth finger? COMPARISON: None available.? TECHNIQUE: 2 views of fourth finger and single view of left hand FINDINGS: The bones and soft tissues are normal. No fracture. Alignment is anatomic. Joint spaces are maintained.? XR/XR finger LT min 2V IMPRESSION: Normal finger radiographs. ? ? External Record Review External record reviewed: Prior outpatient labs Prescription Management I considered prescription management with: Pain Medication Chronic Conditions Patient?s care impacted by: Hypertension and Other (anxiety) Procedures Orthopedic Fracture Reduction Fracture #1: Time Out Performed: Yes Side: left Fracture Reduction Location: radius Analgesia: hematoma block Technique: direct manipulation and traction/counter-traction Post Reduction X-rays Demonstrate: acceptable reduction Post-reduction neuro exam: intact and no change Post-reduction vascular exam: intact and no change Splint Applied: Yes Patient Tolerated Procedure: well and no complications Critical Care Time Critical Care Time Critical Care Time: No Discharge Plan Discharge Clinical Impression: Fracture of wrist Patient Disposition: Home, Self-Care Instructions: Wrist Fracture in Adults (ED) Additional Instructions: wear the applied splint until you see orthopedics - call for an appointment elevate your hand when possible take motrin and tylenol around the clock for pain - alternate them take the prescribed oxycodone as needed for severe pain only If you develop new or worsening symptoms call 911 or come back to the ER for further evaluation. Prescriptions: New oxycodone 5 mg tablet 5 mg PO Q8H PRN (Reason: severe pain (scale score 7-10)) Qty: 6 0RF Rx Instructions: Partial Fill upon patient request. No Action (DME) Flexichamber Spacer See Rx Instructions .ROUTE .MEDSUPPLY Qty: 1 0RF Rx Instructions: As directed lisinopril 30 mg tablet 30 mg PO DAILY Qty: 90 2RF fluticasone furoate-vilanterol [Breo Ellipta] 200-25 mcg/dose blister with device 1 ea PO DAILY Qty: 60 3RF Spiriva with HandiHaler 18 mcg capsule, w/inhalation device 1 cap inhalation DAILY Qty: 30 5RF albuterol sulfate 90 mcg/actuation HFA aerosol inhaler 2 puff PO Q6H PRN (Reason: for wheezing) Qty: 8.5 2RF hydroxyzine HCl 10 mg tablet 10 mg PO BID PRN (Reason: anxiety) Qty: 60 3RF multivitamin Tablet 1 tab PO DAILY rosuvastatin 5 mg tablet 5 mg PO DAILY Qty: 30 8RF sertraline 25 mg tablet 25 mg PO DAILY Qty: 30 3RF [place] [facility] [facility] [place] [facility] [place] Group] (broken wrist Examination: Left forearm and left wrist CLINICAL INFORMATION: Pain following fall COMPARISON: None TECHNIQUE: AP and lateral views of the forearm and AP oblique and lateral view of the wrist. FINDINGS: 2 views of left wrist revealed fracture of the distal radius with angulation of fragments 3 views of left wrist demonstrate impacted and mildly angulated fracture of distal radius. There is soft tissue swelling surrounding the radiocarpal joint. Carpal bones and metacarpal bones are intact. There is diffuse osteopenia. XR/XR wrist LT min 3V IMPRESSION: Colles fractures of the left radius ) Filipe Murcia MD [Primary Care Provider] - Interventions: ED Discharge Assessment Last Done: 04/22/23 15:38 Discharge Date/Time: 04/22/23 15:40
[2023-04-22] MEDS: Lidocaine HCl 1 % 20 ML VIAL 30 ML INFILTRATI (12:45)
[2023-04-22] MEDS: oxyCODONE HCl Immed Release 5 MG TABLET PO (12:55)
[2023-04-22] MEDS: LORazepam 1 MG TABLET PO (13:53)
[2023-04-22 13:54] VITALS: BP 180/80; PULSE 92; RESP 18; O2SAT 95
== END 2023-04-22 15:40 | disposition home or self-care (01) ==
PROVIDERS: Emergency Provider Emergency Medicine; PCP Internal Medicine
DX: S62.102A Fracture of unspecified carpal bone, left wrist, initial encounter for closed fracture (principal); M25.532 Pain in left wrist; W01.10XA Fall on same level from slipping, tripping and stumbling with subsequent striking against unspecified object, initial encounter; Y93.9 Activity, unspecified; Y92.9 Unspecified place or not applicable; Y99.9 Unspecified external cause status; Z79.899 Other long term (current) drug therapy; Z87.891 Personal history of nicotine dependence
CPT/HCPCS: 25605; 73090; 73100; 73110; 99284

== ENCOUNTER 2023-04-23 17:52 | Emergency (ER) | payer OTHER, SELFPAY ==
[2023-04-23 17:58] VITALS: BP 193/104; PULSE 85; RESP 18; TEMP 36.8; O2SAT 95; BMI 23.4
--- NOTE | 2023-04-23 17:58 | ED.UPPEXIN ---
HPI - Extremity Injury (Upper) General Chief Complaint: Extremity Injury, Upper Stated Complaint: Left arm injury [id number] Time Seen by Provider: 04/23/23 18:33 Source: patient, RN notes reviewed and old records reviewed Mode of arrival: ambulatory History of Present Illness HPI narrative: 63yo F w/PMHx COPD, HTN, anxiety, lymphedema, insomnia, HLD, left Colles Fx s/p evaluation in our ED yesterday with reduction & splint placement c/o increasing pain and swelling to LUE digits since last night. Denies more recent injury, fall, numbness/tingling. MD complaint: injury to: left Related Data Home Medications Medication Instructions Recorded Confirmed multivitamin 1 tab PO DAILY 10/11/21 02/10/23 Previous Rx's Medication Instructions Recorded inhalational spacing device #1 ea 03/09/21 (Flexichamber spacer) lisinopril 30 mg tablet 30 mg PO DAILY #90 tabs 01/04/23 rosuvastatin 5 mg tablet 5 mg PO DAILY #30 tabs 02/10/23 sertraline 25 mg tablet 25 mg PO DAILY #30 tabs 02/10/23 fluticasone furoate 200 1 ea PO DAILY #60 ea 03/03/23 mcg-vilanterol 25 mcg/dose inhalation powder (Breo Ellipta) tiotropium bromide 18 mcg capsule 1 cap inhalation DAILY #30 03/03/23 with inhalation device (Spiriva inhalations with HandiHaler) albuterol sulfate 90 mcg/actuation 2 puff PO Q6H PRN for wheezing 03/21/23 aerosol inhaler #8.5 grams hydroxyzine HCl 10 mg tablet 10 mg PO BID PRN anxiety #60 tabs 03/21/23 oxycodone 5 mg tablet 5 mg PO Q8H PRN severe pain (scale 04/22/23 score 7-10) #6 tabs Allergies Allergy/AdvReac Type Severity Reaction Status Date / Time amoxicillin [Augmentin] Allergy Unknown Unknown Verified 02/10/23 12:59 atorvastatin Allergy Unknown Unknown Verified 02/10/23 12:59 cephalexin [From KEFLEX] Allergy Unknown STOMACH Verified 02/10/23 12:59 UPSET clavulanic acid [Augmentin] Allergy Unknown Under Verified 02/10/23 12:59 latex [LATEX] Allergy Unknown RASH Verified 02/10/23 12:59 Sulfa (Sulfonamide Allergy Unknown STOMACH Verified 02/10/23 12:59 Antibiotics) UPSET [SULFA (SULFONAMIDE ANTIBIOTICS)] fluticasone AdvReac Intermediate Anxiety Verified 02/10/23 12:59 [From [facility] Inhub] salmeterol AdvReac Intermediate Anxiety Verified 02/10/23 12:59 [facility] Review of Systems Review of Systems: Constitutional: No Fever, No Chills ENT/Mouth: No Ear Pain, No Nasal Congestion, No sore throat, No Rhinorrhea, No Swallowing Difficulty Cardiovascular: No Chest Pain, No SOB Respiratory: No Cough Musculoskeletal: + joint pain, No Myalgias, + Joint Swelling Skin: No Skin Lesions, No rash Neuro: No Weakness, No Numbness, No Paresthesias Yes all other systems are reviewed and are negative Constitutional: Constitutional: Reports as per [facility] Past Medical History Attestation statement: The following information was validated with the patient. Source: old records reviewed Medical History Anxiety Clavicle enlargement Colonoscopy refused COPD (chronic obstructive pulmonary disease) Generalized anxiety disorder Hospital discharge follow-up Hypercholesterolemia Hypertension Lymphedema Recurrent urinary tract infection Right ankle sprain Screening for breast cancer Surgical History History of section History of tubal ligation Hx of tonsillectomy S/P laparoscopic appendectomy Family History Family History Mother Lung cancer Maternal Grandmother Lung cancer Sister Pancreatic cancer Other Myocardial infarct Social History Social History Household Members: Spouse Housing: Apartment Do you presently have visiting nurse or other home services: No Alcohol intake: unknown Patient Tobacco Use Status: Former Tobacco user Quit Date: 09/21/21 Tobacco use type: Cigarette e-Cigarette/Vaping Use: Never Used Second Hand Smoke Exposure: No Advance Directives: No Advance Directives Information Provided: Yes Advance Directives Date on File: 01/11/21 service: No Current occupational status: unemployed Current occupation: rt hand Cognitive needs: No Hearing needs: No Vision needs: No Physical Exam Vital Signs: Vital Signs: Last Vital Signs Temp 98.3 F 04/23/23 17:58 Pulse 85 04/23/23 17:58 Resp 18 04/23/23 17:58 BP 193/104 H 04/23/23 17:58 Pulse Ox 95 04/23/23 17:58 O2 Del Method Room Air 04/23/23 17:58 BMI result Body Mass Index 23.4 Const: General: cooperative, healthy appearing and no acute distress Orientation/consciousness: patient oriented x3 Limitations: no limitations HEENT: Head: Yes normal to inspection and Yes atraumatic Ears: hearing grossly normal bilaterally General nose exam: Normal external nose present Face and sinus: Yes normal facial exam Eyes: General: appearance normal, both eyes and all related structures EOM: EOMs intact bilaterally Neck: Neck: Yes normal visual inspection and Yes no meningeal signs Resp: Effort & Inspection: normal respiratory effort and no respiratory distress Cardio: Rate: regular rate Skin: Rashes: no rashes Wounds: no wounds Neuro: General: patient oriented x3, tone normal and no meningeal signs Cranial nerves: Yes CN's II-XII intact bilaterally Gait exam (Neuro): Normal gait present Extrem: Other: + sling and splint intact to LUE with noted swollen digits. Splint removed, + swelling noted to left wrist with mild tenderness. Digits mildly tender, neurovascularly intact. Radial pulses intact. Sensation intact to light touch. ROM to LUE limited secondary to pain Course Course Course Narrative: -sugar-tong splint reapplied, patient admits to new splint feeling better than previous. Reports continued high anxiety. Will give 1 time dose of oxycodone and Atarax in the ED and repeat BP -2049--BP improved to 177/94 after pain medication Results discussed with patient including worrisome signs and symptoms and strict return precautions, and when to return to the emergency department. They verbalized understanding and feel safe for discharge at this time. Medications Administered Discontinued Medications Generic Name Dose Route Start Last Admin Trade Name Adele PRN Reason Stop Dose Admin Hydroxyzine HCl 25 mg 04/23/23 19:36 04/23/23 20:04 Hydroxyzine Hcl 25 Mg Tablet PO 04/23/23 19:37 25 mg ONCE ONE Administration Oxycodone HCl 5 mg 04/23/23 19:36 04/23/23 20:04 Oxycodone Hcl Immed Release 5 Mg Tablet PO 04/23/23 19:37 5 mg ONCE ONE Administration Medical Decision Making Medical Decision Making MDM Narrative: 63yo F w/PMHx COPD, HTN, anxiety, lymphedema, insomnia, HLD, left Colles Fx s/p evaluation in our ED yesterday with reduction & splint placement c/o increasing pain and swelling to LUE digits since last night. On exam HTNsive likely from pain, NAD, nontoxic appearing, physical exam as above with splint intact to LUE with noted significant digit swelling, splint removed, digit/wrist mildly tender, neurovascularly intact with full sensation to light touch. Concerns splint was too tight Plan: Replace splint Please refer to course for remaining clinical decision making, interpretation of labs/imaging results, and discussions with consultants and/or family members. Results discussed with patient including worrisome signs and symptoms and strict return precautions, and when to return to the emergency department. They verbalized understanding and feel safe for discharge at this time. Differential Diagnosis Differential Diagnoses: The differential diagnosis associated with the presentation includes As above Independent Interpretation I performed an independent interpretation of an: Plain X-Ray Radiology Impression Discussion of test interpretation with radiology: I have reviewed the radiologist's reading. External Record Review External record reviewed: Inpatient record, Office record, Outpatient record, Prior outpatient labs, Prior outpatient radiology, Primary care record and Outside ED record Tests considered The following testing was considered but not selected: As above Prescription Management I considered prescription management with: Pain Medication Procedures Orthopedic Splinting/Casting Injury #1: Side: left Upper Extremity Injury Location: wrist Upper Extremity Immobilizer: sling/shoulder immobilizer and sugar tong splint Discharge Plan Discharge Clinical Impression: Colles' fracture of left radius, sequela Patient Disposition: Home, Self-Care Instructions: Wrist Fracture in Adults (ED) Additional Instructions: Please keep splint on, dry and clean Ice and elevate Take medications as previously prescribed If fingers become increasingly swollen, painful, numb, or have unbearable/unremitting pain remove splint and return to the ED immediately Please follow-up with orthopedics closely as previously discussed, call on Tuesday after the holiday Prescriptions: No Action (DME) Flexichamber Spacer See Rx Instructions .ROUTE .MEDSUPPLY Qty: 1 0RF Rx Instructions: As directed lisinopril 30 mg tablet 30 mg PO DAILY Qty: 90 2RF fluticasone furoate-vilanterol [Breo Ellipta] 200-25 mcg/dose blister with device 1 ea PO DAILY Qty: 60 3RF Spiriva with HandiHaler 18 mcg capsule, w/inhalation device 1 cap inhalation DAILY Qty: 30 5RF albuterol sulfate 90 mcg/actuation HFA aerosol inhaler 2 puff PO Q6H PRN (Reason: for wheezing) Qty: 8.5 2RF hydroxyzine HCl 10 mg tablet 10 mg PO BID PRN (Reason: anxiety) Qty: 60 3RF multivitamin Tablet 1 tab PO DAILY oxycodone 5 mg tablet 5 mg PO Q8H PRN (Reason: severe pain (scale score 7-10)) Qty: 6 0RF Rx Instructions: Partial Fill upon patient request. rosuvastatin 5 mg tablet 5 mg PO DAILY Qty: 30 8RF sertraline 25 mg tablet 25 mg PO DAILY Qty: 30 3RF Referrals: [facility] [place] [facility] [Provider Group] - 3 days
--- NOTE | 2023-04-23 19:46 | MHC.EDTECH ---
sugar tongue splint applied to left arm
[2023-04-23] MEDS: oxyCODONE HCl Immed Release 5 MG TABLET PO (20:04)
[2023-04-23] MEDS: hydrOXYzine HCL 25 MG TABLET PO (20:04)
[2023-04-23 20:50] VITALS: BP 177/94
[2023-04-23 21:27] VITALS: BP 177/94; PULSE 90; RESP 18; O2SAT 94
== END 2023-04-23 21:27 | disposition home or self-care (01) ==
PROVIDERS: Emergency Provider Student in an Organized Health Care Education/Training Program; PCP Internal Medicine
DX: M79.602 Pain in left arm (principal); S52.532D Colles' fracture of left radius, subsequent encounter for closed fracture with routine healing; W19.XXXD Unspecified fall, subsequent encounter; F41.9 Anxiety disorder, unspecified
CPT/HCPCS: 29125; 99283; 99284

== ENCOUNTER 2023-04-26 10:49 | Outpatient (REF) | payer OTHER, SELFPAY ==
--- NOTE | ~2023-04-26 | XR_ITS ---
EXAMINATION: XR WRIST, LEFT CLINICAL INFORMATION: Pain. COMPARISON: None available. TECHNIQUE: PA, lateral, and oblique views of the left wrist. FINDINGS: There is mild bony demineralization. There is a mild ulnar positive variance. Fine bony detail is limited by overlapping cast material. There is stable alignment of a mildly displaced transverse fracture of the distal left radial metaphysis. A fracture line is redemonstrated, without significant new callus formation. The proximal and distal carpal rows are intact. No focal soft tissue swelling, gas or foreign body is seen. XR/XR wrist LT min 3V IMPRESSION: There is a stable, mildly displaced transverse fracture of the distal left radial metaphysis.
== END 2023-04-26 10:50 | disposition home or self-care (01) ==
LOC: HO.HOSX 10:49
PROVIDERS: PCP Internal Medicine; Visit Provider Orthopaedic Surgery
DX: S52.502A Unspecified fracture of the lower end of left radius, initial encounter for closed fracture (principal); F41.1 Generalized anxiety disorder; J44.9 Chronic obstructive pulmonary disease, unspecified; I89.0 Lymphedema, not elsewhere classified
CPT/HCPCS: 73110

== ENCOUNTER 2023-04-26 10:49 | Outpatient (AMB) | payer OTHER, SELFPAY ==
[2023-04-26 11:36] VITALS: BMI 23.4
--- NOTE | 2023-04-26 11:36 | MHC.OFFVIS ---
Intake Vital Signs 04/26/23 11:36 Height 5 ft Weight 120 lb BMI 23.4 Intake Visit Reasons: FC - left wrist fx, Intake Note: Ginna 63 yr old right hand dominant female presents today for her ED follow up visit for her left wrist. States on 04/22/23 she fell and tried to break her fall with her hand. Seen in ED where xrays were taken, reduced and patient was splinted due to a confirm fracture. Currently states she has little soreness, pain has been stable due to staying in her splint. Denies numbness or tingling. Allergies amoxicillin [Augmentin] Allergy (Unknown, Verified 04/26/23 12:03) Unknown atorvastatin Allergy (Unknown, Verified 04/26/23 12:03) Unknown cephalexin [From KEFLEX] Allergy (Unknown, Verified 04/26/23 12:03) STOMACH UPSET clavulanic acid [Augmentin] Allergy (Unknown, Verified 04/26/23 12:03) Under latex [LATEX] Allergy (Unknown, Verified 04/26/23 12:03) RASH Sulfa (Sulfonamide Antibiotics) [SULFA (SULFONAMIDE ANTIBIOTICS)] Allergy (Unknown, Verified 04/26/23 12:03) STOMACH UPSET fluticasone [From Wixela Inhub] Adverse Reaction (Intermediate, Verified 04/26/23 12:03) Anxiety salmeterol [From Wixela Inhub] Adverse Reaction (Intermediate, Verified 04/26/23 12:03) Anxiety HPI FC - left wrist fx, HPI Details Ginna is a 63 year old woman who presents to discuss her left wrist fracture, after a fall DOI: 04/21/23. She was seen in the ED on 04/22/23 where her fracture was reduced and she was placed in a splint. She returned to the ED on 04/23/23 for a new splint as her old one was too tight. She reports being allergic to latex and a bad reaction in the past caused her to develop Lymphedema. She says this generally only affects her hands and she often has to sit with her hands elevated to prevent this. She is out of work on disability due to this. She presents today saying she is doing okay, and her pain has improved while wearing her splint. She is seen wearing a sugar-tong splint that goes out to her fingers and are holding them extended She denies any numbness or tingling. She used to be a smoker but says she quit in 09/2021. She was prescribed Oxycodone 8mg Q8H prn in the ED, which she says she takes at night to help her sleep without pain. [facility] Medical History Anxiety Clavicle enlargement Colonoscopy refused COPD (chronic obstructive pulmonary disease) Generalized anxiety disorder Hospital discharge follow-up Hypercholesterolemia Hypertension Lymphedema Recurrent urinary tract infection Right ankle sprain Screening for breast cancer Surgical History History of section History of tubal ligation Hx of tonsillectomy S/P laparoscopic appendectomy Family History Mother Lung cancer Maternal Grandmother Lung cancer Sister Pancreatic cancer Other Myocardial infarct Social History Household Members: Spouse Housing: Apartment Do you presently have visiting nurse or other home services: No Alcohol intake: never Patient Tobacco Use Status: Former Tobacco user Quit Date: 09/21/21 Tobacco use type: Cigarette e-Cigarette/Vaping Use: Never Used Second Hand Smoke Exposure: No Advance Directives Date on File: 01/11/21 service: No Current occupational status: unemployed Current occupation: rt hand Cognitive needs: No Hearing needs: No Vision needs: No Review of Systems Const All systems reviewed & are unremarkable except as noted in HPI and below Physical Exam Vital Signs: BMI result Body Mass Index 23.4 Const General: cooperative, healthy appearing and no acute distress Orientation/consciousness: patient oriented x3 HEENT Head: Yes normocephalic and Yes atraumatic Eyes EOM: EOMs intact bilaterally Resp Effort & Inspection: normal respiratory effort and able to speak in complete sentences Cardio Jugular venous distension: no JVD Skin General skin exam: turgor normal Rashes: no rashes Neuro General: patient oriented x3 Extrem Other: Evaluation of Left Upper Extremity: The patient is alert, oriented, and in no acute distress Neuro: Median, Ulnar, Radial nerves motor and sensory intact and sensation is normal to the tips of all digits Vascular: Cap refill brisk ROM: She can make a fist and extend all her digits No locking or catching Skin: No lacerations or abrasions. General: No Ecchymosis. No Erythema or evidence of infection. Radiographs: 3 views of the left wrist from 04/22/23 were reviewed by me today in clinic. They show a displaced left distal radius fracture and possible scaphoid waist fracture, distal third Psych Appearance: grossly normal Affect: normal affect Attitude: cooperative Assessment & Plan Assessment & Plan (1) Fracture of left distal radius: Code(s): S52.502A - Unspecified fracture of the lower end of left radius, initial encounter for closed fracture (2) Generalized anxiety disorder: Code(s): F41.1 - Generalized anxiety disorder (3) COPD (chronic obstructive pulmonary disease): Code(s): J44.9 - Chronic obstructive pulmonary disease, unspecified (4) Lymphedema: Code(s): I89.0 - Lymphedema, not elsewhere classified Plan Assessment & Plan: 1. Left distal radius fracture From a fall, DOI: 04/21/23 Reduced and splinted in the ED on 04/22/23 She is seen today wearing a sugar-tong splint holding her fingers in extension. 2. Possible scaphoid waist fracture, distal third I educated her about this condition I discussed operative and non-operative treatment options I recommend surgery, and she is in agreement The risks and benefits of operative treatment were discussed with the patient and the patient wishes to proceed with surgery. These risks include, but are not limited to risk of damage to blood vessels, nerves, tendons, infection, recurrence, incomplete relief of preoperative symptoms, persistent pain, possible need for further surgery and the risks associated with regional blocks and anesthesia. The plan is to take the patient to the operating room sometime on 04/28/23 for the following procedures: 1. Left distal radius ORIF vs CRPP, under general 2. Possible scaphoid ORIF All of the preoperative paperwork including the consent was filled out today. All the patient's questions were answered. The patient understands that they will be contacted by our health data administrator soon to schedule this procedure She denies Diabetes, blood thinners, heart, lung, kidney issues She is a former smoker, has COPD, and has Anxiety. She says she occasionally has a cigarette. She has a hx of lymphedema due to an allergic reaction to latex. She was prescribed Oxycodone 8mg Q8H prn in the ED, which she says she takes at night to help her sleep without pain. I prescribed a 5-day course of Oxycodone, 5mg to be taken at night. Scribed for Chhaya Trinidad MD by Justin Sanderson, medical practice administrator, on 04/26/23 at 12:10 AM, EST. Orders: Orders XR wrist LT min 3V Today M25.532 - Pain in left wrist Medications: New oxycodone Partial Fill upon patient request. 5 mg PO BID PRN 5 tabs 0RF pain Coding Level of Care Code New Pt Level 4 (31099) Diagnoses Fracture of left distal radius S52.502A Generalized anxiety disorder F41.1 COPD (chronic obstructive pulmonary disease) J44.9 Lymphedema I89.0
== END 2023-04-26 12:29 | disposition home or self-care (01) ==
PROVIDERS: PCP Internal Medicine; Visit Provider Orthopaedic Surgery
DX: S52.502A Unspecified fracture of the lower end of left radius, initial encounter for closed fracture (principal)
CPT/HCPCS: 99204

== ENCOUNTER 2023-04-28 08:30 | Day surgery (SDC) | payer OTHER, SELFPAY ==
--- NOTE | 2023-04-27 12:09 | P.CONAN_ITS ---
<Statement entered by Iliana Gilman MD - 05/10/23 07:56> not my patient , for anesthesia. Documented by User: Juliet Munoz NP 05/09/23 13:55 HPI - Anesthesia Eval Consult details Narrative: 63yo F for Left Radius Distal ORIF, possible scapoid ORIF PMFSH Active Problems Active Problems: All Active Problems (Updated 04/26/23 @ 12:09 by Justin Sanderson) Fracture of left distal radius (Acute) COPD exacerbation (Acute) Impaired fasting glucose (Acute) Generalized anxiety disorder (Acute) COPD (chronic obstructive pulmonary disease) (Acute) Insomnia (Acute) Lymphedema (Acute) Urticaria (Acute) Recurrent urinary tract infection (Acute) Hypercholesterolemia (Acute) Hypertension (Acute) Past Medical History Medical History Anxiety Clavicle enlargement Colonoscopy refused COPD (chronic obstructive pulmonary disease) Generalized anxiety disorder Hospital discharge follow-up Hypercholesterolemia Hypertension Lymphedema Recurrent urinary tract infection Right ankle sprain Screening for breast cancer Family History Family History Mother Lung cancer Maternal Grandmother Lung cancer Sister Pancreatic cancer Other Myocardial infarct Surgical History Surgical History History of section History of tubal ligation Hx of tonsillectomy S/P laparoscopic appendectomy Social History Social History Household Members: Spouse Housing: Apartment Do you presently have visiting nurse or other home services: No Alcohol intake: never Patient Tobacco Use Status: Former Tobacco user Quit Date: 09/21/21 Tobacco use type: Cigarette e-Cigarette/Vaping Use: Never Used Second Hand Smoke Exposure: No Advance Directives Date on File: 01/11/21 service: No Current occupational status: unemployed Current occupation: rt hand Cognitive needs: No Hearing needs: No Vision needs: No Meds Allergies Allergy/AdvReac Type Severity Reaction Status Date / Time amoxicillin [Augmentin] Allergy Unknown Unknown Verified 05/04/23 14:38 atorvastatin Allergy Unknown Unknown Verified 05/04/23 14:38 cephalexin [From KEFLEX] Allergy Unknown STOMACH Verified 05/04/23 14:38 UPSET clavulanic acid [Augmentin] Allergy Unknown Under Verified 05/04/23 14:38 latex [LATEX] Allergy Unknown RASH Verified 05/04/23 14:38 Sulfa (Sulfonamide Allergy Unknown STOMACH Verified 05/04/23 14:38 Antibiotics) UPSET [SULFA (SULFONAMIDE ANTIBIOTICS)] fluticasone AdvReac Intermediate Anxiety Verified 05/04/23 14:38 [From Wixela Inh] salmeterol AdvReac Intermediate Anxiety Verified 05/04/23 14:38 [From [facility]] Home Medications Medication Instructions Recorded Confirmed Last Taken Type multivitamin 1 tab PO DAILY 10/11/21 04/28/23 10/10/21 History Exam Exam Date and Time: April 27, 2023 1209 Pertinent Lab Results Pertinent Lab Results: Laboratory Tests 09/22/22 01/24/23 10:15 12:57 WBC 11.3 H Hgb 15.1 Hct 45.8 Plt Count 225 Sodium 137 Potassium 4.8 Chloride 100 Carbon Dioxide 27 BUN 8 L Creatinine 0.60 Assessment and Plan Assessment Anesthesia Assessment: Chart Reviewed Documented by User: Iliana Gilman MD 05/10/23 07:54 PMFSH Past Medical History Medical History Anxiety Clavicle enlargement Colonoscopy refused COPD (chronic obstructive pulmonary disease) Generalized anxiety disorder Hospital discharge follow-up Hypercholesterolemia Hypertension Lymphedema Recurrent urinary tract infection Right ankle sprain Screening for breast cancer Family History Family History Mother Lung cancer Maternal Grandmother Lung cancer Sister Pancreatic cancer Other Myocardial infarct Surgical History Surgical History History of section History of tubal ligation Hx of tonsillectomy S/P laparoscopic appendectomy Social History Social History Household Members: Spouse Housing: Apartment Do you presently have visiting nurse or other home services: No Alcohol intake: never Patient Tobacco Use Status: Former Tobacco user Quit Date: 09/21/21 Tobacco use type: Cigarette e-Cigarette/Vaping Use: Never Used Second Hand Smoke Exposure: No Advance Directives Date on File: 01/11/21 service: No Current occupational status: unemployed Current occupation: rt hand Cognitive needs: No Hearing needs: No Vision needs: No Meds Allergies Allergy/AdvReac Type Severity Reaction Status Date / Time amoxicillin [Augmentin] Allergy Unknown Unknown Verified 05/04/23 14:38 atorvastatin Allergy Unknown Unknown Verified 05/04/23 14:38 cephalexin [From KEFLEX] Allergy Unknown STOMACH Verified 05/04/23 14:38 UPSET clavulanic acid [Augmentin] Allergy Unknown Under Verified 05/04/23 14:38 latex [LATEX] Allergy Unknown RASH Verified 05/04/23 14:38 Sulfa (Sulfonamide Allergy Unknown STOMACH Verified 05/04/23 14:38 Antibiotics) UPSET [SULFA (SULFONAMIDE ANTIBIOTICS)] fluticasone AdvReac Intermediate Anxiety Verified 05/04/23 14:38 [From Wixela Inhub] salmeterol AdvReac Intermediate Anxiety Verified 05/04/23 14:38 [From Wixela Inhub] Home Medications Medication Instructions Recorded Confirmed Last Taken Type multivitamin 1 tab PO DAILY 10/11/21 04/28/23 10/10/21 History Exam Airway Mallampati Class: II TM Dist: >3cm Neck ROM: Full
[2023-04-28] VITALS (7 sets, daily range): BP systolic 140–164; BP diastolic 64–85; PULSE 74–84; RESP 16–20; TEMP 36.4–36.7; O2SAT 92–100; BMI 22.7
--- NOTE | ~2023-04-28 | FL_ITS ---
EXAMINATION: XR FLUOROSCOPY WITH IMAGES CLINICAL INFORMATION: Distal radius ORIF. COMPARISON: Left wrist 04/26/2023. TECHNIQUE: Fluoroscopy Supervised By: Chhaya Trinidad. Fluoroscopy Time: 27.69 seconds. Cumulative Dose: 0.7752 mGy. DAP: 0.0468 Gycm2. Images: 5. FINDINGS: Plate and screw device overlies the distal left radial metaphyseal fracture. Fracture fragments are in good alignment. Hardware intact. FL/FL guidance in OR IMPRESSION: Plate and screw device overlies the distal left radial metaphyseal fracture.
[2023-04-28] MEDS: Lactated Ringers 1,000 ML 100 ML IVCONT (09:14)
--- NOTE | 2023-04-28 09:18 | PC.NURSE ---
dr. nunn aware that patient has copd, used 2 inhalers at 0600 this a.m. lung sounds diminished throughout, occ. cough noted. 93-94%RA. respiratory contacted to complete treatment.
[2023-04-28] MEDS: Albuterol Sulfate (0.083%) 2.5 MG/3 ML VIAL.NEB INHALE (09:26)
--- NOTE | 2023-04-28 10:32 | P.OP_ITS ---
Operative Note Operative Note Date of Service: 04/28/23 Narrative: Operative Note Narrative: Preop diagnosis: 1. left Distal radius fracture , extra-articular 2. Possible distal scaphoid fracture Postop diagnosis: 1. Left distal radius fracture, extra-articular 2. Distal scaphoid fracture not visualized On fluoroscopic images. Procedure: 1. left Distal radius fracture open reduction internal fixation, extra- articular Surgeon: Chhaya Trinidad MD Anesthesia: General anesthesia plus regional block Findings: fluoroscopic images were taken in multiple views to assess the scaphoid. I did not see conclusive evidence of a distal scaphoid fracture, which we were worried about based on previous images. Implants: A 3 hole Accu Med volar locking plate, with 4x 2.3 mm locking pegs/screws, and 3 3.5 mm cortical screws Tourniquet time: Thirty-five minutes EBL: 5.0 ml Specimen: None Drains: None Complications: None Disposition: Brought to the recovery room in stable condition Plan: Follow-up in 10-14 days for wound check, suture removal and postop radiographs The patient will be placed in a volar wrist splint. Encouraged no lifting of anything heavier than a cell phone. Please encourage active and passive range of motion of the digits. Follow-up at 4-5 weeks postop for repeat radiographs. Indications: The patient is a [age] year old woman with a displaced left distal radius fracture . The risks and benefits of operative treatment, including but not limited to risk of damage to blood vessels, nerves, tendons, infection, recurrence, persistent pain or numbness, incomplete resolution of preoperative symptoms, or need for further surgery were discussed with the patient and they wished to proceed with surgery. Procedure: Once consent was obtained patient was brought back to the operating suite and placed in the operating table in a supine position. A regional block was performed by the anesthesia team. Perioperative antibiotics and anesthesia was administered by the anesthesia team. A tourniquet was applied to the proximal aspect of the left upper extremity and the limb was prepped and draped in a standard surgical fashion. The limb was elevated exsanguinated with Esmarch bandage and the tourniquet inflated to 250 mm of mercury for a total tourniquet time of 35 minutes. The FluoroScan was used throughout the case to assess our reduction, and facilitate implant placement. A gentle closed reduction was 1st performed on the patient's left distal radius fracture. Was assessed radiographically before proceeding with the reduction internal fixation. I then made an 8 cm longitudinal incision over the distal aspect of the flexor carpi radialis tendon. The incision was made through the skin to the subcutaneous tissue using a 15. Blade. Then carefully dissected down to flexor carpi radialis tendon she tenotomy scissors. The FCR tendon sheath was then incised longitudinally using tenotomy scissors under direct visualization. The FCR tendon was then retracted ulnarly. I then made a longitudinal incision in the volar forearm fascia through the floor of FCR tendon sheath using tenotomy scissors under direct visualization. I identified the interval between the radial artery and the flexor tendons. This interval was developed further with my index finger, releasing some of the muscular fibers of the flexor pollicis longus. A dull weatlander retractor was then placed. I then created an ulnarly based flap of the pronator quadratus by releasing the radial and distal edges using a 15. Blade. A Cifuentes elevator was used to elevate the pronator quadratus from the volar surface of the distal radius. This then revealed to us our distal radius fracture. An open reduction was then performed on our distal radius fracture. I then placed a short narrow 3 hole Accu Med volar locking plate on the volar surface of the distal radius. I placed a single K-wire through the distal aspect of the plate and into the distal radius. This was assessed using fluoroscopic images. I was satisfied with the placement of our plate. I then placed 4x 2.3 mm locking screws/pegs in the distal aspect of the plate and distal radius by 1st drilling bicortically with a 1.8 mm drill bit, measuring with a depth gauge, and placing the appropriate length locking screws/pegs. The placement of our plate and screws was then assessed again using fluoroscopic images. The once satisfied with the placement of the volar locking plate and screws on the distal aspect of the distal radius, the plate was then reduced to the shaft of the radius. I then placed 3 3.5 mm cortical screws to the proximal aspect of the plate and into the shaft of the radius. This was done by 1st drilling bicortically with a 2.8 mm drill bit, measuring with a depth gauge, and placing the appropriate length screw. Final radiographs were then obtained. The DRUJ was assessed and found to be stable on exam. I was satisfied with our reduction and placement of all implants. the scaphoid was assessed on multiple fluoroscopic images both at the beginning of the case and at the conclusion of the case. I did not see evidence of an occult scaphoid fracture. At this point the wound was irrigated with normal saline. The pronator quadratus was reduced back over the volar locking plate using some 3-0 Vicryl suture material. The tourniquet was then deflated and hemostasis was obtained with a brief period of local pressure and bipolar monopolar electrocautery. The subcutaneous layer was then reapproximated using some 4-0 Vicryl suture, and the skin edges were reapproximated using some 5 0 Prolene suture. The wound was then infiltrated with some 1% lidocaine with epinephrine postop pain control. A sterile dressing and a short dorsal splint allowing for active flexion and extension of the digits was applied. The patient appears to have tolerated the procedure well and with no complications. All digits were well vascularized conclusion of the case.
--- NOTE | 2023-04-28 10:32 | MHC.SHP ---
Pre-Procedural Eval Section A Date of Service: 04/28/23 The patient is an INPATIENT: No Changes since office visit: No Cold of Flu in the past 2 weeks, No New Medical Problems, No Changes in Medication and No Patient answered all questions The History & Physical has been completed within 30 days and I have reviewed it.: Yes Section B Chief Complaint: Unspecified fracture of the lower end of left radi Allergies: Allergies Allergy/AdvReac Type Severity Reaction Status Date / Time amoxicillin [Augmentin] Allergy Unknown Unknown Verified 04/28/23 08:48 atorvastatin Allergy Unknown Unknown Verified 04/28/23 08:48 cephalexin [From KEFLEX] Allergy Unknown STOMACH Verified 04/28/23 08:48 UPSET clavulanic acid [Augmentin] Allergy Unknown Under Verified 04/28/23 08:48 latex [LATEX] Allergy Unknown RASH Verified 04/28/23 08:48 Sulfa (Sulfonamide Allergy Unknown STOMACH Verified 04/28/23 08:48 Antibiotics) UPSET [SULFA (SULFONAMIDE ANTIBIOTICS)] fluticasone AdvReac Intermediate Anxiety Verified 04/28/23 08:48 [From Wixela Inhub] salmeterol AdvReac Intermediate Anxiety Verified 04/28/23 08:48 [From Wixela Inhub] Plan I have reviewed the history and physical and performed a pertinent physical examination on my patient. No changes have occurred unless specified. Time Spent With Patient Time: Total time managing care of this patient today ____ minutes.
== END 2023-04-28 14:04 | disposition home or self-care (01) ==
PROVIDERS: PCP Internal Medicine; Visit Provider Orthopaedic Surgery
PROC: (CPT 25607; principal; 2023-04-28 10:10)
DX: S52.502A Unspecified fracture of the lower end of left radius, initial encounter for closed fracture (principal); W18.30XA Fall on same level, unspecified, initial encounter; Y93.9 Activity, unspecified; Y92.9 Unspecified place or not applicable; Y99.8 Other external cause status; I89.0 Lymphedema, not elsewhere classified; J44.9 Chronic obstructive pulmonary disease, unspecified; I10 Essential (primary) hypertension; F41.1 Generalized anxiety disorder; Z91.040 Latex allergy status; Z88.1 Allergy status to other antibiotic agents; Z88.8 Allergy status to other drugs, medicaments and biological substances; Z87.891 Personal history of nicotine dependence
CPT/HCPCS: 25607; 94640; C1713; C1769; J0690; J2250; J3010

== ENCOUNTER → 2023-04-28 08:30 | Outpatient (BNV) | payer OTHER, SELFPAY | PROVIDERS: PCP Internal Medicine; Visit Provider Orthopaedic Surgery | DX: S52.502A Unspecified fracture of the lower end of left radius, initial encounter for closed fracture (principal) | CPT/HCPCS: 25607 ==

== ENCOUNTER 2023-05-04 14:37 | Outpatient (AMB) | payer OTHER, SELFPAY ==
--- NOTE | 2023-05-04 14:38 | MHC.PC.OV ---
Intake Visit Reasons: Discuss med changes Allergies amoxicillin [Augmentin] Allergy (Unknown, Verified 05/04/23 14:38) Unknown atorvastatin Allergy (Unknown, Verified 05/04/23 14:38) Unknown cephalexin [From KEFLEX] Allergy (Unknown, Verified 05/04/23 14:38) STOMACH UPSET clavulanic acid [Augmentin] Allergy (Unknown, Verified 05/04/23 14:38) Under latex [LATEX] Allergy (Unknown, Verified 05/04/23 14:38) RASH Sulfa (Sulfonamide Antibiotics) [SULFA (SULFONAMIDE ANTIBIOTICS)] Allergy (Unknown, Verified 05/04/23 14:38) STOMACH UPSET fluticasone [From Wixela Inhub] Adverse Reaction (Intermediate, Verified 05/04/23 14:38) Anxiety salmeterol [From Wixela Inhub] Adverse Reaction (Intermediate, Verified 05/04/23 14:38) Anxiety Tobacco use date assessed: 10/29/22 Fall risk assessment: 1 Fall in past year Last assessed Fall Risk: 05/04/23 Dental Screening Dental Screen Date: 05/04/23 Did you have a dental visit in the last 12 months?: Yes Did you have a dental problem in the last 6 months where you did not have access to dental care?: No Was dental information given to patient?: Patient has dentist [facility] Medical History Anxiety Clavicle enlargement Colonoscopy refused COPD (chronic obstructive pulmonary disease) Generalized anxiety disorder Hospital discharge follow-up Hypercholesterolemia Hypertension Lymphedema Recurrent urinary tract infection Right ankle sprain Screening for breast cancer Surgical History History of section History of tubal ligation Hx of tonsillectomy S/P laparoscopic appendectomy Family History Mother Lung cancer Maternal Grandmother Lung cancer Sister Pancreatic cancer Other Myocardial infarct Social History Household Members: Spouse Housing: Apartment Do you presently have visiting nurse or other home services: No Alcohol intake: never Patient Tobacco Use Status: Former Tobacco user Quit Date: 09/21/21 Tobacco use type: Cigarette e-Cigarette/Vaping Use: Never Used Second Hand Smoke Exposure: No Advance Directives Date on File: 01/11/21 service: No Current occupational status: unemployed Current occupation: rt hand Cognitive needs: No Hearing needs: No Vision needs: No Questionnaire PHQ-9 Over the last 2 weeks, how often have you been bothered by any of the following problems? 1. Little interest or pleasure in doing things: not at all 2. Feeling down, depressed, or hopeless: not at all 3. Trouble falling or staying asleep, or sleeping too much: not at all 4. Feeling tired or having little energy: not at all 5. Poor appetite or overeating: not at all 6. Feeling bad about yourself - or that you are a failure or have let yourself or your family down: not at all 7. Trouble concentrating on things, such as reading the newspaper or watching television: not at all 8. Moving or speaking so slowly that other people could have noticed. Or the opposite - being so fidgety or restless that you have been moving around a lot more than usual: not at all 9. Thoughts that you would be better off or of hurting yourself in some way: not at all Total score: 0 Depression Screening Interpretation: Negative 21191 - PHQ-9 Billing: Yes Source: Developed by Drs. Benson Gastelum, Nicole Murillo, Galo Merrtit and colleagues, with an educational carol from [employer]. Thrive Questionnaire Date Thrive assessed: 02/10/23 AUDIT C Alcohol Use Questionnaire (AUDIT-C) 1. How often do you have a drink containing alcohol?: Monthly or less 2. How many drinks containing alcohol do you have on a typical day when you are drinking?: 1 or 2 3. How often do you have six or more drinks on one occasion?: Never Total Score: 1 Score Reviewed/Action Taken: No JAZZ-7 AMB Questionnaire JAZZ-7 Date JAZZ - 7 assessed: 02/10/23 Source: Developed by Drs. Benson Gastelum, Galo Nation and colleagues, with an educational carol from [employer]. Physical exam (Primary Care) Tobacco/Smoking Status: Tobacco use Status Tobacco use date assessed 10/29/22 05/04/23 14:41 Patient Tobacco Use Status Former Tobacco user 05/04/23 14:41 Tobacco use type Cigarette 05/04/23 14:41 e-Cigarette/Vaping Use Never Used 05/04/23 14:41 PHQ-9: PHQ-9 Score PHQ-9: Total score 0 05/04/23 14:41 Depression Screening Interpretation: Negative Thrive Assessment: Date of Thrive Assessment Date Thrive assessed 02/10/23 05/04/23 14:41 Telehealth Telehealth Location of provider rendering services: practice address Location of patient: address on file Patient Identification confirmed using: Name, : Yes Telehealth method: voice only Patient verbally consented to treatment: Yes Patient verbally consented to billing insurance company: Yes Patient informed of any privacy concerns related to visit: Yes Minutes spent on Phone/Video with Pt.: 15 Assessment and Plan Assessment & Plan (1) Fracture of left distal radius: Comment: Dr. Trinidad 04/2023 ORIF Code(s): S52.502A - Unspecified fracture of the lower end of left radius, initial encounter for closed fracture Plan: Patient follows up with Ortho (2) Hypertension: Code(s): I10 - Essential (primary) hypertension Qualifiers: Hypertension type: essential hypertension Qualified Code(s): I10 - Essential (primary) hypertension Plan: Continue with blood pressure medication. Decrease salt intake and exercise (3) COPD (chronic obstructive pulmonary disease): Code(s): J44.9 - Chronic obstructive pulmonary disease, unspecified Plan: Continue with inhaler on albuterol p.r.n. and Breo regularly. (4) Generalized anxiety disorder: Code(s): F41.1 - Generalized anxiety disorder Plan: Patient declined taking sertraline and now declining to take any other medication except for the hydroxyzine. Discussed about the drowsiness side effect Medications: Discontinued sertraline Discontinued Reason: Patient Refused 25 mg PO DAILY 30 tabs 3RF F41.1 - Generalized anxiety disorder Coding Level of Care Code Tele Est Pt Level 4 (99599) Diagnoses Fracture of left distal radius S52.502A Essential hypertension I10 Hypertension type: essential hypertension Panlobular emphysema J44.9 Generalized anxiety disorder F41.1
== END 2023-05-04 15:11 | disposition home or self-care (01) ==
LOC: HO.HMGH 14:37
PROVIDERS: PCP Internal Medicine; Visit Provider Internal Medicine
DX: S52.502A Unspecified fracture of the lower end of left radius, initial encounter for closed fracture (principal); I10 Essential (primary) hypertension; J44.9 Chronic obstructive pulmonary disease, unspecified; F41.1 Generalized anxiety disorder
CPT/HCPCS: 99214

== ENCOUNTER 2023-05-10 11:19 | Outpatient (REF) | payer OTHER, SELFPAY ==
--- NOTE | ~2023-05-10 | XR_ITS ---
EXAMINATION: XR WRIST, LEFT CLINICAL INFORMATION: Pain. COMPARISON: 05/04/2023, 04/27/2023, 04/26/2023 TECHNIQUE: Four views of the left wrist. FINDINGS: Status post ORIF with plate and screw device overlying the distal left radial metaphyseal fracture. Hardware appears intact. Alignment is satisfactory. Bones are diffusely demineralized. Advanced degenerative changes in the first carpometacarpal and STT joints. XR/XR wrist LT w scaphoid IMPRESSION: Status post ORIF with plate and screw device overlying the distal left radial metaphyseal fracture. Hardware appears intact.
== END 2023-05-10 11:20 | disposition home or self-care (01) ==
LOC: HO.HOSX 11:19
PROVIDERS: Visit Provider Orthopaedic Surgery
DX: S52.502D Unspecified fracture of the lower end of left radius, subsequent encounter for closed fracture with routine healing (principal)
CPT/HCPCS: 73110

== ENCOUNTER 2023-05-10 13:24 | Outpatient (AMB) | payer OTHER, SELFPAY ==
--- NOTE | 2023-05-10 13:35 | A.OFFVIS_ITS ---
Intake Intake Visit Reasons: PO-Lt Distal Radius ORIF/Scapoid ORIF 04/28/23 Intake Note: Ginna 63 yr old female presents today for her P/O visit for her left distal radius/scaphoid ORIF from 04/28/23. Xrays updated in office. Allergies amoxicillin [Augmentin] Allergy (Unknown, Verified 05/10/23 14:02) Unknown atorvastatin Allergy (Unknown, Verified 05/10/23 14:02) Unknown cephalexin [From KEFLEX] Allergy (Unknown, Verified 05/10/23 14:02) STOMACH UPSET clavulanic acid [Augmentin] Allergy (Unknown, Verified 05/10/23 14:02) Under latex [LATEX] Allergy (Unknown, Verified 05/10/23 14:02) RASH Sulfa (Sulfonamide Antibiotics) [SULFA (SULFONAMIDE ANTIBIOTICS)] Allergy (Unknown, Verified 05/10/23 14:02) STOMACH UPSET fluticasone [From Wixela Inhub] Adverse Reaction (Intermediate, Verified 05/10/23 14:02) Anxiety salmeterol [From Wixela Inhub] Adverse Reaction (Intermediate, Verified 05/10/23 14:02) Anxiety HPI PO-Lt Distal Radius ORIF/Scapoid ORIF 04/28/23 HPI Details The patient is a 63-year-old woman who is status post an open reduction internal fixation of her left distal radius fracture with ga on 04/28/2023. At that time we were also concerned about a possible distal scaphoid waist fracture. We did not see evidence of scaphoid fracture on intraoperative fluoroscopic views. She is following up today with pre clinic radiographs. She says that she is doing well though she still has a fair amount of swelling in her fingers. She does have trouble with lymphedema. [facility] Medical History Anxiety Clavicle enlargement Colonoscopy refused COPD (chronic obstructive pulmonary disease) Generalized anxiety disorder Hospital discharge follow-up Hypercholesterolemia Hypertension Lymphedema Recurrent urinary tract infection Right ankle sprain Screening for breast cancer Surgical History History of section History of tubal ligation Hx of tonsillectomy S/P laparoscopic appendectomy Family History Mother Lung cancer Maternal Grandmother Lung cancer Sister Pancreatic cancer Other Myocardial infarct Social History Household Members: Spouse Housing: Apartment Do you presently have visiting nurse or other home services: No Alcohol intake: never Patient Tobacco Use Status: Former Tobacco user Quit Date: 09/21/21 Tobacco use type: Cigarette e-Cigarette/Vaping Use: Never Used Second Hand Smoke Exposure: No Advance Directives Date on File: 01/11/21 service: No Current occupational status: unemployed Current occupation: rt hand Cognitive needs: No Hearing needs: No Vision needs: No Physical Exam Extrem Other: The patient was alert oriented and in no acute distress. Her incision is healing well with no erythema drainage or evidence of infection. She still has a fair amount of swelling in her fingers and her hand. Only Minimal swelling at the wrist. Minimal if any tenderness to palpation at the fracture site. She can make a fist and extend all of her digits. Full and symmetrical pronation. She has got about 45 degrees of supination on the left. Radiographs: Three views of the left wrist plus a scaphoid view show satisfactory fracture alignment and position of all implants. Again I do not see a clear scaphoid fracture. Assessment & Plan Assessment & Plan (1) Fracture of left distal radius: Comment: Dr. Trinidad 04/2023 ORIF Code(s): S52.502A - Unspecified fracture of the lower end of left radius, initial encounter for closed fracture Plan Assessment and plan: 1. Left distal radius fracture status post ORIF Date of surgery 04/28/2023 She appears to be doing well postoperatively. Sutures removed and Steri-Strips applied. She still has a fair amount of swelling in her hand and fingers secondary to which she calls lymphedema. We fitted her with a Velcro wrist splint which she is to wear like a cast except for showering and gentle [id number] exercises. We talked about the importance of activity modification and lifting nothing heavier than about a cell phone. She is going to work on finger range of motion and gentle wrist range of motion. We will see her back in about 4 weeks with new radiographs. Orders: Orders XR wrist LT w scaphoid Today M25.532 - Pain in left wrist Coding Level of Care Code Global (59544) Diagnoses Fracture of left distal radius S52.502A
== END 2023-05-10 14:48 | disposition home or self-care (01) ==
PROVIDERS: PCP Internal Medicine; Visit Provider Orthopaedic Surgery
DX: S52.502A Unspecified fracture of the lower end of left radius, initial encounter for closed fracture (principal)
CPT/HCPCS: 99024